=== PATIENT | male | born 1930 | race Caucasian/White ===

== ENCOUNTER → 2018-08-13 | Outpatient (CLI) | payer MEDICARE, BC | LOC: GMAE 11:08 | PROVIDERS: ATTEND Family Medicine | DX: E03.9 Hypothyroidism, unspecified (principal) ==

== ENCOUNTER → 2018-09-28 | Outpatient (CLI) | payer MEDICARE, BC | LOC: GMAE 17:42 | PROVIDERS: ATTEND Family Medicine | DX: J06.9 Acute upper respiratory infection, unspecified (principal) ==

== ENCOUNTER → 2018-09-29 | Outpatient (CLI) | payer MEDICARE, BC | LOC: GMAE 14:38 | PROVIDERS: ATTEND Family Medicine | DX: F03.90 Unspecified dementia, unspecified severity, without behavioral disturbance, psychotic disturbance, mood disturbance, and anxiety (principal) ==

== ENCOUNTER 2018-12-14 05:17 | Day surgery (SDC) | payer MEDICARE, BC ==
[2018-12-14] MEDS ORDERED: PROPARACAINE 0.5% OPHTH SOL 15 ML BTTL ONE (11:43)
[2018-12-14] MEDS ORDERED: TROP 1%/CYCLOPEN 1%/PHENYL 2% DROPS ONE (11:43)
[2018-12-14] MEDS ORDERED: MIDAZOLAM INJ 2 MG/2 ML VIAL ONE (13:17)
[2018-12-14] MEDS ORDERED: PROPARACAINE 0.5% OPHTH SOL 15 ML BTTL RIGHT_EYE ONE (13:21)
[2018-12-14] MEDS ORDERED: LIDOCAINE 1% 2 ML VIAL INJ ONE (13:31)
[2018-12-14] MEDS ORDERED: DEXAMETHASONE 0.1% OPHTH SOL 1 DROP RIGHT_EYE ONE ×2 (13:31→13:48)
[2018-12-14] MEDS ORDERED: BRIMONIDINE 0.2% OPHTH DROPS RIGHT_EYE ONE ×2 (13:32→13:48)
[2018-12-14] MEDS ORDERED: TOBRAMYCIN SULF 0.3 % OPHT SOL 1 DROP RIGHT_EYE ONE ×2 (13:32→13:48)
== END 2018-12-14 14:37 | disposition home or self-care (01) ==
LOC: AMB 05:17
PROVIDERS: ATTEND Ophthalmology
DX: H25.11 Age-related nuclear cataract, right eye (principal); K21.9 Gastro-esophageal reflux disease without esophagitis; Z88.0 Allergy status to penicillin; Z95.0 Presence of cardiac pacemaker; Z79.01 Long term (current) use of anticoagulants; Z79.1 Long term (current) use of non-steroidal anti-inflammatories (NSAID); Z79.899 Other long term (current) drug therapy
CPT/HCPCS: 00142; 66984; J2250

== ENCOUNTER 2018-12-28 05:36 | Day surgery (SDC) | payer MEDICARE, BC ==
[2018-12-28] MEDS ORDERED: MOXIFLOXACIN HCL (OPHTH) 1 DROP DROPS ONE (08:22)
[2018-12-28] MEDS ORDERED: PROPARACAINE 0.5% OPHTH SOL 15 ML BTTL ONE (08:23)
[2018-12-28] MEDS ORDERED: TROP 1%/CYCLOPEN 1%/PHENYL 2% DROPS ONE (08:23)
[2018-12-28] MEDS ORDERED: MIDAZOLAM INJ 2 MG/2 ML VIAL ONE (11:28)
[2018-12-28] MEDS ORDERED: PROPARACAINE 0.5% OPHTH SOL 15 ML BTTL LEFT_EYE ONE (11:31)
[2018-12-28] MEDS ORDERED: LIDOCAINE 1% 2 ML VIAL INJ ONE (11:42)
[2018-12-28] MEDS ORDERED: DEXAMETHASONE 0.1% OPHTH SOL 1 DROP LEFT_EYE ONE ×2 (11:42→12:08)
[2018-12-28] MEDS ORDERED: TOBRAMYCIN SULF 0.3 % OPHT SOL 1 DROP LEFT_EYE ONE ×2 (11:43→12:08)
[2018-12-28] MEDS ORDERED: BRIMONIDINE 0.2% OPHTH DROPS LEFT_EYE ONE ×2 (11:43→12:08)
[2018-12-28] MEDS ORDERED: MOXIFLOXACIN HCL (OPHTH) 1 DROP DROPS LEFT_EYE ONE ×2 (11:44→12:07)
== END 2018-12-28 12:39 | disposition home or self-care (01) ==
LOC: AMB 05:36
PROVIDERS: ATTEND Ophthalmology
DX: H25.12 Age-related nuclear cataract, left eye (principal); I48.91 Unspecified atrial fibrillation; F03.90 Unspecified dementia, unspecified severity, without behavioral disturbance, psychotic disturbance, mood disturbance, and anxiety; Z88.0 Allergy status to penicillin; Z85.79 Personal history of other malignant neoplasms of lymphoid, hematopoietic and related tissues; Z79.01 Long term (current) use of anticoagulants; Z79.899 Other long term (current) drug therapy
CPT/HCPCS: 00142; 66984; J2250

== ENCOUNTER → 2019-07-12 | Outpatient (CLI) | payer MEDICARE, BC | LOC: LAB.O 14:44 | PROVIDERS: ATTEND Internal Medicine Hematology | DX: C90.00 Multiple myeloma not having achieved remission (principal); D63.1 Anemia in chronic kidney disease; D80.1 Nonfamilial hypogammaglobulinemia; N18.3 Chronic kidney disease, stage 3 (moderate); I48.91 Unspecified atrial fibrillation; M46.00 Spinal enthesopathy, site unspecified; M89.8X9 Other specified disorders of bone, unspecified site; M19.90 Unspecified osteoarthritis, unspecified site ==

== ENCOUNTER → 2019-07-14 | Outpatient (CLI) | payer MEDICARE, BC ==
--- NOTE | 2019-07-14 16:33 | CT ---
EXAM DESCRIPTION: Head w/wo Contrast: Computed Tomography. CLINICAL HISTORY: PARKINSON'S DISEASE. Patient unable to have MRI scan due to pacemaker COMPARISON: None. TECHNIQUE: Spiral -axial scans through the head and brain at 2.5 x 20 mm intervals, without and with nonionic IV contrast. Coronal and sagittal 2.0 mm reconstructions, post-IV contrast. No adverse reactions. Total Exam DLP: 1719.94 mGy-cm. This exam was performed according to our departmental CT dose-optimization program which includes automated exposure control, adjustment of the mA and/or kV according to patient size and/or use of iterative reconstruction technique; to reduce radiation dose to as low as reasonably achievable (ALARA). FINDINGS: No hemorrhage. No mass-effect and no midline shift. Normal contrast enhancement. Bilaterally symmetric decreased periventricular density. No abnormal radiodense material in the brain parenchyma. Bilateral vascular calcifications.Vascular calcifications anterior and posterior; physiologic calcifications in the pineal gland and choroid plexus. No effacement or displacement of the ventricles, CSF spaces, or subdural spaces. Symmetric enlargement of the ventricular system. Cavum septum pellucid and. Normal contrast enhancement. No extra axial fluid collection or hemorrhage. No gross abnormalities of the bony calvarium. Decreased bone density. No unusual enhancement in the [place]. Deformity of the left maxillary antrum with wall thickening and opacification. Mucosal thickening in the anterior left ethmoid air cells. IMPRESSION: 1. No hemorrhage. No mass effect or midline shift.. Periventricular white matter density changes most likely related to cerebral microvascular disease/aging. Also cerebrovascular calcifications in the anterior and posterior circulations and in the basal ganglia. 2. CT scans are insensitive for detecting small CVA's in the first 24 hours after onset. Evaluation of the brain stem is also limited. If symptoms persist, consider MRI scan of the brain with diffusion imaging. 3. Deformity in the left maxillary antrum which is partially visualized. Visualized segment is completely opacified. Deformity could be due to prior trauma or inflammation. Chronic sinusitis in the anterior left ethmoid air cells. Electronically signed by: Kev Zaidi MD 07/14/2019 4:31 PM CDT
== END ==
LOC: MRI 14:00
PROVIDERS: ATTEND Psychiatry & Neurology Neurology
DX: G20 Parkinson's disease (principal); M51.06 Intervertebral disc disorders with myelopathy, lumbar region; M54.16 Radiculopathy, lumbar region; M54.12 Radiculopathy, cervical region; M95.8 Other specified acquired deformities of musculoskeletal system; J32.9 Chronic sinusitis, unspecified

== ENCOUNTER → 2019-07-19 | Outpatient (CLI) | payer MEDICARE, BC ==
--- NOTE | 2019-07-19 17:22 | CT ---
EXAM DESCRIPTION: Cervical Spine: Computed Tomography. CLINICAL HISTORY: 88 years Male RADICULOPATHY COMPARISON: None Available. TECHNIQUE: Spiral, axial 2.5 x 2.5 mm scans through the cervical spine without contrast. Coronal and sagittal 2.0 mm Reconstructions. Total Exam DLP: 370.49 mGy-cm. This exam was performed according to our departmental dose-optimization program which includes automated exposure control, adjustment of the mA and/or kV according to patient size and/or use of iterative reconstruction technique; to reduce radiation dose to as low as reasonably achievable (ALARA). FINDINGS: Advanced hypertrophic arthrosis atlantoaxial joint. No fracture. Small soft tissue calcifications between the anterior foramen magnum and the odontoid process. Anterior ligament posterior to the odontoid is almost abutting the cord. Mild arthrosis of the atlantooccipital joints with no displacement. Mild arthrosis in the bilateral C1-C2 facets more on the left. Overall bone density is decreased. C2-C3: Posterior disc space narrowed more than anterior space. Posterior disc bulge not abutting the cord. Left uncinate spur and moderate narrowing of the neural foramen. Bilateral facet hypertrophic arthrosis more on the left. C3-C4: Posterior disc space decreased more than anterior. Trace anterolisthesis. Posterior disc bulge with calcification and endplate spurs. Left uncinate spur. Bilateral hypertrophic facet arthrosis more on the left. Left neural foraminal stenosis. Mild to moderate narrowing of the right neural foramen. AP canal diameter 9.5 mm. C4-C5: Disc space loss and 2 mm anterolisthesis. Bilateral hypertrophic facet arthrosis, bilateral uncinate spurs larger on the right than the left. Bilateral neural foraminal stenosis. Posterior midline disc bulge with spurs. AP canal diameter 9.5 mm. C5-C6: Marked disc space loss mostly posterior. Posterior disc bulge with endplate spurs. Bilateral uncinate spurs. Moderate to severe right neural foraminal narrowing. Moderate left neural foraminal stenosis. Bilateral hypertrophic facet arthrosis. Mild canal narrowing. C6-C7: Moderate disc space loss. Posterior disc bulge and spurs encroaching on the canal more in the midline into the left of midline. Uncinate spur and endplate changes left lateral disc space. Bilateral facet arthrosis more left than right. Moderate to severe left neural foraminal narrowing and mild to moderate right neural foraminal narrowing. C7-T1: Trace anterolisthesis. Bilateral facet spurs and hypertrophy. Mild bilateral neural foraminal narrowing. Moderate disc space loss. Anterior bridging spurs. Mild canal narrowing. Mild dextroscoliosis. No compression type vertebral body fractures. Bilateral soft tissue calcifications at the C3-C4 level which may be related to common carotid bifurcations. Included apical lungs showing minimal is a density and pulmonary blebs. IMPRESSION: 1. Advanced osteoarthrosis atlantoaxial joint, atlantooccipital joints bilaterally, and the C1-C2 facets more on the left. Calcification between the odontoid process in the anterior foramen magnum. Thickening of the anterior ligament in the canal almost abutting the cord. 2. Left uncinate spur and moderate left neural foraminal narrowing C2-C3. 3. Left neural foraminal stenosis at C3-C4 and moderate narrowing of the right neural foramen. Moderate canal narrowing. 4. Multifactorial bilateral neural foraminal stenosis at C4-C5. Moderate canal narrowing. 5. Multifactorial moderate narrowing left neural foraminal stenosis at C5-C6. 6. Multifactorial moderate to severe left neural foraminal narrowing at C6-C7. Electronically signed by: Kev Zaidi MD 07/19/2019 5:20 PM CDT
== END ==
LOC: CT 13:25
PROVIDERS: ATTEND Psychiatry & Neurology Neurology
DX: G20 Parkinson's disease (principal); M47.22 Other spondylosis with radiculopathy, cervical region; M50.11 Cervical disc disorder with radiculopathy, high cervical region; M48.02 Spinal stenosis, cervical region

== ENCOUNTER → 2019-07-22 | Outpatient (CLI) | payer MEDICARE, BC ==
--- NOTE | 2019-07-23 09:07 | CT ---
EXAM DESCRIPTION: Lumbar Spine: Computed Tomography. CLINICAL HISTORY: 88 years Male RADICULOPATHY LUMBAR REGION COMPARISON: MRI scan cervical spine 07/19/2019. CT scan of the head with and without IV contrast 07/14/2019. TECHNIQUE: Spiral, axial 2.5 x 2.5 mm scans through the lumbarspine without contrast. Coronal and sagittal 2.0 mm Reconstructions. No adverse reactions. Total Exam DLP: 450.64 mGy-cm. This exam was performed according to our departmental dose-optimization program which includes automated exposure control, adjustment of the mA and/or kV according to patient size and/or use of iterative reconstruction technique; to reduce radiation dose to as low as reasonably achievable (ALARA). FINDINGS: L5-S1: Severe narrowing with endplate sclerosis and also calcification in the disc remnant. The posterior disc is not bulging into the canal. Bilateral hypertrophic facet arthrosis. Severe on the left with endplate spurs resulting in severe left foraminal stenosis. Moderate right foraminal narrowing. Mild canal narrowing. Bilateral L5 pars interarticularis sclerosis. Bilateral subarticular recess narrowing. L4-L5: Severe disc space loss with endplate erosions. Anterior endplate ridging. Small disc remnant. 8.5 mm grade 1 anterolisthesis. Hypertrophic facet arthrosis bilaterally. Moderate central canal stenosis. Bilateral foraminal stenosis. Bilateral subarticular recess stenosis. L3-L4: Minimal posterior disc space loss. Grade 1 anterolisthesis 2 mm. Advanced hypertrophic facet arthrosis bilaterally more right than left. Bilateral ligament thickening. AP canal diameter 9 mm. Mild right foraminal stenosis and moderate left foraminal narrowing. Narrowing right subarticular recess stenosis. L2-L3: Minimal posterior disc space loss. Trace retrolisthesis. No significant disc bulge. Bilateral advanced hypertrophic facet arthrosis and ligament thickening. AP canal diameter 8 mm. Mild right foraminal narrowing and mild left foraminal stenosis. L1-L2: Anterior endplate spurs and minimal bulging. Posterior disc space is narrowed. Trace retrolisthesis. Bilateral moderate hypertrophic facet arthrosis and thickening of the ligament. AP canal diameter 12 mm. Moderate to severe right foraminal narrowing moderate left foraminal narrowing. T12-L1: Minimal loss of the posterior disc space. No bulging. Bilateral moderate hypertrophic facet arthrosis and ligament thickening. Mild canal narrowing. No scoliosis. No compression type vertebral body fractures. No dominant paravertebral soft tissue mass. Atherosclerotic calcifications in the abdominal aorta and bilateral proximal common iliac arteries. IMPRESSION: 1. Multiple levels of endplate spondylosis, hypertrophic facet arthrosis and thickening of the flavum ligaments. 2. Advanced spondylosis and disc space loss with disc remnant at L5-S1. Severe left foraminal stenosis defect or no with moderate right foraminal narrowing. Correlate for left L5 radiculopathy. Bilateral L5 pars interarticularis spondylosis versus lysis. 3. Advanced spondylosis L4-5 with grade 1 anterolisthesis. Multifactorial mild central canal stenosis and bilateral foraminal stenosis. Correlate for bilateral L4 radiculopathy. Bilateral subarticular recess stenosis, could be compromising bilateral L5 nerves. 4. Grade 1 anterolisthesis at L3-4 with mild central canal stenosis. Mild right foraminal stenosis multifactorial. Correlate for right L3 radiculopathy. 5. Multifactorial moderate central canal stenosis at L2-L3 with mild left foraminal stenosis. Correlate for left L2 radiculopathy. 6. Trace retrolisthesis with moderate canal narrowing. Moderate to severe right foraminal narrowing. Correlate for right L1 radiculopathy. Electronically signed by: Kev Zaidi MD 07/23/2019 9:06 AM CDT
== END ==
LOC: CT 13:00
PROVIDERS: ATTEND Psychiatry & Neurology Neurology
DX: Z01.812 Encounter for preprocedural laboratory examination (principal); M47.27 Other spondylosis with radiculopathy, lumbosacral region; M47.26 Other spondylosis with radiculopathy, lumbar region; M43.16 Spondylolisthesis, lumbar region; M48.062 Spinal stenosis, lumbar region with neurogenic claudication; G20 Parkinson's disease

== ENCOUNTER → 2019-10-04 | Outpatient (CLI) | payer MEDICARE, BC | LOC: GMAE 17:41 | PROVIDERS: ATTEND Family Medicine | DX: C90.00 Multiple myeloma not having achieved remission (principal); N18.9 Chronic kidney disease, unspecified; D63.1 Anemia in chronic kidney disease; E53.8 Deficiency of other specified B group vitamins ==

== ENCOUNTER 2020-03-30 08:16 | Emergency (ER) | payer MEDICARE, BC ==
--- NOTE | 2020-03-30 08:55 | ED.PDOC ---
History of Present Illness - General Chief Complaint: Problem Stated Complaint: unable to urniate, diarrhea Time Seen by Provider: 03/30/20 08:51 Source: patient, RN notes reviewed, Vital Signs reviewed, family Exam Limitations: other - dementia Additional Information: 89yo M h/o multiple myeloma presents for difficulty urinating. History from family secondary to dementia. Reports small amounts of urine last night, no urine this morning with resulting suprapubic discomfort. Denies abdominal pain at other site, fever/chills, n/v, cough, SOB, chest pain. Reports some non- bloody diarrhea this morning as well. No other complaints at this time. - History of Present Illness Timing/Duration: yesterday Quality: moderate Onset Location: suprapubic Radiation: none Improving Factors: nothing Worsening Factors: nothing Associated Symptoms: abdominal pain, other - diarrhea Allergies/Adverse Reactions: Allergies Penicillins Allergy (Verified 03/30/20 08:42) Review of Systems - Review of Systems Constitutional: Denies: chills, fever EENTM: Denies: mouth swelling - reported h/o osteonecrosis Respiratory: States: no symptoms reported Cardiology: States: no symptoms reported Gastrointestinal/Abdominal: States: abdominal pain - suprapubic pain, diarrhea Genitourinary: States: pain. Denies: discharge, dysuria, frequency Musculoskeletal: States: no symptoms reported Skin: States: no symptoms reported Neurological: States: no symptoms reported Endocrine: States: no symptoms reported Past Medical History (General) - Patient Medical History Hx Cardiac Disorders: Yes - A-fib, pacemaker Hx Congestive Heart Failure: No Hx Diabetes: No Hx Cancer: Yes - multiple myeloma Surgical History: other - Vaccination History Hx Tetanus, Diphtheria Vaccination: No Hx Influenza Vaccination: Yes Hx Pneumococcal Vaccination: No - Social History Hx Tobacco Use: No Hx Alcohol Use: Yes - rare Hx Substance Use: No Hx Substance Use Treatment: No Hx Depression: No Family Medical History - Family History Mother Family History: Unknown Physical Exam - Physical Exam General Appearance: Alert, Comfortable, No apparent distress, Well Developed Eyes, Ears, Nose, Throat Exam: PERRL/EOMI Cardiovascular/Respiratory: regular rate, rhythm, no JVD, normal breath sounds, no respiratory distress Gastrointestinal/Abdominal: normal bowel sounds, soft, other - suprapubic pain with palpation Male Genital Exam: normal genitalia, other - no lesions, no testicular pain/erythema, no discharge or bleeding Back Exam: no CVA tenderness Extremity: normal range of motion, non-tender, no pedal edema Neurologic: load mixer II-XII nml as tested Skin Exam: normal color, warm/dry Progress - Progress Progress: 03/30/20 09:08 89yo M PMH multiple myeloma, on medications, with reported new difficulty urinating. 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 No reported history of BPH or prostate disease. Abdomen soft and otherwise non-tender, low suspicion for ischemia, bowel obstruction, aortic pathology, ACS, intraabdominal infection. Bedside sono with approximately 800cc urine in distended bladder, catheter placed with good output. Plan for labs, pain control PRN, reassess. 03/30/20 09:31 Patient reassessed. Suprapubic discomfort resolved, no pain with palpation, abdomen remained soft and non-tender, and patient reported relief of symptoms. Discussed results, ED course, and plan of care with patient and family. Time was given to address questions and concerns. They voiced understanding and ag bud with plan of care and early follow-up. ED warnings given. 03/30/20 09:[address] West, recommended flomax and early follow-up with his office. - Results/Orders Results/Orders: 03/30/20 08:51 Catheter:Zhang QSHIFT Intake/Output PRN URINALYSIS Stat Laboratory Results - last 24 hr 03/30/20 03/30/20 03/30/20 09:02 09:02 09:02 WBC 7.7 RBC 3.64 L Hgb 11.3 L Hct 33.6 L MCV 92.1 MCH 31.0 MCHC 33.7 RDW 20.7 H Plt Count 149 MPV 7.1 L Absolute Neuts (auto) 5.40 Absolute Lymphs (auto) 1.20 Absolute Monos (auto) 0.90 H Absolute Eos (auto) 0.10 Absolute Basos (auto) 0.10 Neutrophils % 69.8 Lymphocytes % 16.1 L Monocytes % 12.3 H Eosinophils % 1.1 Basophils % 0.7 Sodium 132 L Potassium 4.2 Chloride 98 L Carbon Dioxide 24 Anion Gap 14.2 BUN 19 H Creatinine 1.26 BUN/Creatinine Ratio 15.1 Random Glucose 147 H Serum Osmolality 269.5 L Calcium 11.8 H Total Bilirubin 1.7 H AST 35 ALT 18 Alkaline Phosphatase 73 Serum Total Protein 8.4 H Albumin 3.1 L Globulin 5.3 H Albumin/Globulin Ratio 0.6 L Lipase 34 Urine Color Urine Appearance Urine pH Ur Specific Sod Urine Protein Urine Glucose (UA) Urine Ketones Urine Blood Urine Nitrite Urine Bilirubin Urine Urobilinogen Ur Leukocyte Esterase Urine RBC Urine WBC Ur Epithelial Cells Amorphous Sediment Urine Bacteria 03/30/20 09:05 WBC RBC Hgb Hct MCV MCH MCHC RDW Plt Count MPV Absolute Neuts (auto) Absolute Lymphs (auto) Absolute Monos (auto) Absolute Eos (auto) Absolute Basos (auto) Neutrophils % Lymphocytes % Monocytes % Eosinophils % Basophils % Sodium Potassium Chloride Carbon Dioxide Anion Gap BUN Creatinine BUN/Creatinine Ratio Random Glucose Serum Osmolality Calcium Total Bilirubin AST ALT Alkaline Phosphatase Serum Total Protein Albumin Globulin Albumin/Globulin Ratio Lipase Urine Color Yellow Urine Appearance Clear Urine pH 7.0 Ur Specific Sod 1.025 Urine Protein Trace Urine Glucose (UA) Negative Urine Ketones Negative Urine Blood Negative Urine Nitrite Negative Urine Bilirubin Negative Urine Urobilinogen 1.0 Ur Leukocyte Esterase Negative Urine RBC 0-1 Urine WBC 0 Ur Epithelial Cells 0-1 Amorphous Sediment Trace Urine Bacteria 0 Departure - Departure Clinical Impression: Acute urinary retention Time of Disposition: 09:35 Disposition: Discharge to Home or Self Care Condition: Fair Departure Forms: ED Discharge - Pt. Copy, Patient Portal Self Enrollment Instructions: DI for Urinary Retention in Men Diet: regular diet Activity: increase activity as tolerated Referrals: IVVI WEST MD [Primary Care Provider] - 1-2 Weeks Additional Instructions: You were seen in the [facility] today. Please fill and take the medications as prescribed (if any) and if you were prescribed antibiotics, please complete the full course. You will need further evaluation on an out patient basis. You must follow up with the listed locations and within the time frames indicated in your discharge paperwork (including your PCP in 1-2 days). Failure to follow up with any studies or doctor visits within the timeframe mentioned could result in poor outcome. Your examination today in the ED did not reveal a new or old problem that required immediate surgery or admission to the hospital. However, you should return to the ED if you are not improving as instructed (especially within the first 6 to 24 hours). This may include things such as uncontrolled vomiting, s hortness of breath, fever, bleeding, or severe pain in a body part. You should return for any new or worsening emergency symptoms such as chest pain, severe headache, confusion, or severe abdominal pain. Finally, return to the emergency department if you have any concerns not mentioned above that are concerning to you or if you are unable to follow up as instructed above. If symptoms worsen, Contact your physician: 1. sudden weight gain 2. increased shortness of breath, especially when lying down 3. increased swelling in legs 4. cough that does not go away 5. tightness or pain in your chest 6. if you are having problems with your medications
[2020-03-30 10:17] VITALS: BP 165/83; TEMP 97.6; O2SAT 97
== END 2020-03-30 10:16 | disposition home or self-care (01) ==
LOC: ER 08:16
DX: R33.9 Retention of urine, unspecified (principal); C90.00 Multiple myeloma not having achieved remission; I48.91 Unspecified atrial fibrillation

== ENCOUNTER 2020-04-03 14:01 | Emergency (ER) | payer MEDICARE, BC ==
--- NOTE | 2020-04-03 14:40 | RAD ---
EXAM DESCRIPTION: Abdomen Series CLINICAL HISTORY: 89 years Male, bloody diarrhea COMPARISON: None. Findings: Four view(s)/radiograph(s) Left chest wall pacemaker. Cardiac silhouette and pulmonary vasculature are within normal limits. No pneumothorax. No pleural effusion. The lungs are clear. No free air beneath the diaphragm. Large stool volume. No suspicious calcification. Nonobstructive bowel gas pattern. No air-fluid level. No free air. Vascular calcifications. Osteopenia. No acute osseous abnormality. IMPRESSION: No acute radiographic abnormality. Electronically signed by: Maicol Montano MD 04/03/2020 2:38 PM CDT
[2020-04-03] MEDS ORDERED: SODIUM CHLORIDE 0.9% 1000ML 1,000 ML IVS ONE (15:07)
--- NOTE | 2020-04-03 15:49 | CT ---
EXAM DESCRIPTION: Abdomen/Pelvis w/Contrast CLINICAL HISTORY: 89 years Male, blood per rectum with diarrhea TECHNIQUE: This exam was performed according to our departmental dose-optimization program, which includes automated exposure control, adjustment of the mA and/or kV according to patient size and/or use of iterative reconstruction technique. COMPARISON: 09/13/2013 FINDINGS: Bibasilar volume loss. No focal consolidation or suspicious pulmonary nodule. Hepatic steatosis. No suspicious hepatic lesion. No biliary dilatation. Gallbladder is unremarkable. The portal vein is patent. Calcified granuloma in the spleen. The pancreas and adrenal glands are unremarkable. Right renal cyst. Symmetric renal parenchymal enhancement. No hydronephrosis. Left renal cyst. No urolithiasis. Bladder is decompressed with Zhang catheter. Prostatic calcifications. Circumferential thickening of the rectum with perirectal fat stranding. No evidence of bowel obstruction. No adenopathy. No focal fluid collection. No free air. Diffuse atherosclerotic disease. The infrarenal abdominal aorta measures 2.8 cm. Osteopenia. No acute or suspicious osseous abnormality. Scattered degenerative changes present. IMPRESSION: 1. Findings of acute proctitis. 2. 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 Recommend follow-up ultrasound or CT every 5 years. Electronically signed by: Maicol Montano MD 04/03/2020 3:48 PM CDT
[2020-04-03] MEDS ORDERED: metroNIDAZOLE 500 MG TAB PO ONE (15:55)
[2020-04-03] MEDS ORDERED: CIPROFLOXACIN 500 MG TAB PO ONE (15:55)
--- NOTE | 2020-04-03 16:21 | ED.PDOC ---
History of Present Illness - General Chief Complaint: GI Problem Stated Complaint: Blood in stool, fever, cough Time Seen by Provider: 04/03/20 14:06 Source: patient Exam Limitations: no limitations - History of Present Illness Initial Comments: The patient is a 89-year-old male presented emergency room secondary to intermittent diarrhea with some blood in it over the last couple of days. Additionally when he went to check yet at the primary care doctor's office, they recorded a temperature of 100.3. No chest pain or shortness of breath. No cough. No nausea or vomiting. He does have a Zhang catheter in place secondary to urinary retention. He normally has constipation issues. No syncope or near syncope. No evidence of sepsis. Temperature here is 99.7. Patient does have some dementia and his caregiver is very helpful. Timing/Duration: other - 3 to 5 days Severity: moderate Improving Factors: nothing Worsening Factors: nothing, other - He does have some pain with bowel movements Allergies/Adverse Reactions: Allergies Penicillins Allergy (Verified 04/03/20 14:22) Home Medications: Ambulatory Orders Tamsulosin [Flomax] 0.4 mg PO DAILY #7 cap 03/30/20 Review of Systems - Review of Systems Constitutional: States: no symptoms reported EENTM: States: no symptoms reported Respiratory: States: no symptoms reported Cardiology: States: no symptoms reported Gastrointestinal/Abdominal: States: constipation, diarrhea Genitourinary: States: no symptoms reported Musculoskeletal: States: no symptoms reported Skin: States: no symptoms reported Neurological: States: no symptoms reported - Chronic dementia Endocrine: States: no symptoms reported All other Systems: No Change from Baseline Past Medical History (General) - Patient Medical History Hx Cardiac Disorders: Yes - A-fib, pacemaker Hx Congestive Heart Failure: No Hx Diabetes: No Hx Cancer: Yes - multiple myeloma - Vaccination History Hx Tetanus, Diphtheria Vaccination: No Hx Influenza Vaccination: Yes Hx Pneumococcal Vaccination: No - Social History Hx Tobacco Use: No Hx Alcohol Use: Yes - rare Hx Substance Use: No Hx Substance Use Treatment: No Hx Depression: No - Activities of Daily Living Hospice Agency (if applicable):: None - Female History Patient is a Female of Child Bearing Age (10 -59 yrs old): No - Triage Comment ED Triage Comment: pt daughter voices fever, cough, and blood in stool that started last night. she voices that he was seen in ER friday night. Family Medical History - Family History Mother Family History: Unknown Physical Exam - Physical Exam General Appearance: Alert, Comfortable, No apparent distress Eye Exam: bilateral normal Ears, Nose, Throat: hearing grossly normal, normal pharynx Neck: full range of motion, supple Respiratory: lungs clear, normal breath sounds, no respiratory distress, no accessory muscle use Cardiovascular/Chest: normal peripheral pulses, regular rate, rhythm, no edema Peripheral Pulses: radial,right: 2+, radial,left: 2+ Gastrointestinal/Abdominal: non tender, soft Rectal Exam: other - External exam shows no significant hemorrhoids. 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 The patient appears to have acute proctitis. I am going to place the patient empirically on ciprofloxacin and metronidazole. I am also going to write him for Anusol and Proctofoam to be used intrarectally. He will also be written for a gallon of GoLYTELY to be taken over the next 24 hours to help relieve constipation which will hopefully help also relieve the proctitis. No evidence of sepsis. White blood cell count is reassuring. He does need to follow back up with his primary care doctor before the end of the week. This is for reevaluation also for evaluation for removal of the Zhang catheter. They do need to be doing bladder training at home between now and then. He was unable to provide a stool sample today. ER warnings are given for any worsening. trell leach [id number] - Results/Orders Results/Orders: Acute abdominal series shows moderate constipation. CT scan of the abdomen pelvis with IV contrast shows a fatty liver and acute proctitis. see report for details. Laboratory Tests 04/03/20 04/03/20 04/03/20 14:24 14:24 14:24 WBC 5.6 RBC 3.49 L Hgb 10.8 L Hct 32.1 L MCV 92.0 MCH 31.0 MCHC 33.7 RDW 20.1 H Plt Count 165 MPV 7.2 L Absolute Neuts (auto) 2.60 Absolute Lymphs (auto) 2.00 Absolute Monos (auto) 0.80 Absolute Eos (auto) 0.20 Absolute Basos (auto) 0.00 Neutrophils % 46.8 Lymphocytes % 35.0 Monocytes % 13.8 H Eosinophils % 3.6 Basophils % 0.8 PT 11.3 H INR 1.14 PTT (SP) 28.2 Sodium 135 Potassium 3.9 Chloride 100 L Carbon Dioxide 26 Anion Gap 12.9 BUN 16 Creatinine 1.15 BUN/Creatinine Ratio 13.9 Random Glucose 111 H Serum Osmolality 272.0 L Lactic Acid Calcium 10.7 H Magnesium 1.6 L Total Bilirubin 1.1 H AST 40 ALT 28 Alkaline Phosphatase 66 Creatine Kinase 22 L CK-MB (CK-2) 0.6 CK-MB (CK-2) % Not Reportable Troponin I 0.02 B-Natriuretic Peptide 398.0 H* Serum Total Protein 8.5 H Albumin 3.0 L Globulin 5.5 H Albumin/Globulin Ratio 0.5 L Amylase 40 Lipase 44 D Total PSA 04/03/20 04/03/20 14:24 14:24 WBC RBC Hgb Hct MCV MCH MCHC RDW Plt Count MPV Absolute Neuts (auto) Absolute Lymphs (auto) Absolute Monos (auto) Absolute Eos (auto) Absolute Basos (auto) Neutrophils % Lymphocytes % Monocytes % Eosinophils % Basophils % PT INR PTT (SP) Sodium Potassium Chloride Carbon Dioxide Anion Gap BUN Creatinine BUN/Creatinine Ratio Random Glucose Serum Osmolality Lactic Acid 1.1 Calcium Magnesium Total Bilirubin AST ALT Alkaline Phosphatase Creatine Kinase CK-MB (CK-2) CK-MB (CK-2) % Troponin I B-Natriuretic Peptide Serum Total Protein Albumin Globulin Albumin/Globulin Ratio Amylase Lipase Total PSA 2.43 Departure - Departure Clinical Impression: Proctitis Disposition: Discharge to Home or Self Care Departure Forms: ED Discharge - Pt. Copy, Patient Portal Self Enrollment Instructions: Proctitis Diet: regular diet Activity: increase activity as tolerated Referrals: VIVI CALDERON MD [Primary Care Provider] - 1-5 Days Home Medications: Ambulatory Orders Tamsulosin [Flomax] 0.4 mg PO DAILY #7 cap 03/30/20 Additional Instructions: The patient is a 89-year-old male presented emergency room secondary to diarrhea with blood in it as well as a low-grade fever today. The patient appears to have acute proctitis. I am going to place the patient empirically on ciprofloxacin and metronidazole. I am also going to write him for Anusol and Proctofoam to be used intrarectally. He will also be written for a gallon of GoLYTELY to be taken over the next 24 hours to help relieve constipation which will hopefully help also relieve the proctitis. No evidence of sepsis. White blood cell count is reassuring. He does need to follow back up with his primary care doctor before the end of the week. This is for reevaluation also for evaluation for removal of the Zhang catheter. They do need to be doing bladder training at home between now and then. He was unable to provide a stool sample today. ER warnings are given for any worsening.
[2020-04-03 17:11] VITALS: O2SAT 98
[2020-04-03 17:12] VITALS: BP 102/55; TEMP 98.9
== END 2020-04-03 17:05 | disposition home or self-care (01) ==
LOC: ER 14:01
DX: K62.89 Other specified diseases of anus and rectum (principal); K59.00 Constipation, unspecified; I48.91 Unspecified atrial fibrillation; Z95.0 Presence of cardiac pacemaker; R33.9 Retention of urine, unspecified
CPT/HCPCS: 36415; 74019; 74177; 80053; 81001; 82150; 82550; 82553; 83605; 83690; 83735; 83880; 84484; 85025; 85610; 85730; 87040; G0103; J7030

== ENCOUNTER → 2020-05-03 | Outpatient (CLI) | payer MEDICARE, BC | LOC: LAB.O 15:41 | PROVIDERS: ATTEND Internal Medicine Hematology & Oncology | DX: C90.00 Multiple myeloma not having achieved remission (principal); D50.9 Iron deficiency anemia, unspecified; D63.1 Anemia in chronic kidney disease; D80.1 Nonfamilial hypogammaglobulinemia; N18.3 Chronic kidney disease, stage 3 (moderate); I48.91 Unspecified atrial fibrillation; M48.00 Spinal stenosis, site unspecified; M89.8X9 Other specified disorders of bone, unspecified site; M19.90 Unspecified osteoarthritis, unspecified site ==

== ENCOUNTER 2020-08-28 10:10 | Inpatient (IN) | payer MEDICARE, BC ==
--- NOTE | 2020-08-28 11:44 | ED.PDOC ---
History of Present Illness - General Chief Complaint: Lower Extremity Injury Stated Complaint: left hip pain post fall yesterday Time Seen by Provider: 08/28/20 10:52 Source: patient, RN notes reviewed, Vital Signs reviewed, family - daughter Exam Limitations: other - Dementia - History of Present Illness Initial Comments: Patient is an 89-year-old white male with significant dementia who presents with complaints of left hip pain status post fall yesterday. After the fall, patient was unable to get up off the floor without help and has been unable to walk since that time. History of present illness and review of systems is limited secondary to his dementia. Pain is moderate in intensity, no radiation. He is unable to characterize the quality of the pain. Occurred: yesterday Severity: moderate Pain Location: lower extremity - Left hip Method of Injury: fall Improving Factors: rest Worsening Factors: movement Loss of Consciousness: no loss of consciousness Associated Symptoms (Fall): denies symptoms Allergies/Adverse Reactions: Allergies Penicillins Allergy (Verified 08/28/20 10:29) Home Medications: Ambulatory Orders Tamsulosin [Flomax] 0.4 mg PO DAILY #7 cap 03/30/20 Review of Systems - Review of Systems Constitutional: States: no symptoms reported, see HPI EENTM: States: no symptoms reported. Denies: eye pain, blurred vision, double vision Respiratory: States: no symptoms reported. Denies: cough, short of breath, stridor Cardiology: States: no symptoms reported. Denies: chest pain, palpitations, syncope Gastrointestinal/Abdominal: States: no symptoms reported. Denies: abdominal pain, diarrhea, nausea, vomiting Genitourinary: States: no symptoms reported Musculoskeletal: States: joint pain - left hip. Denies: back pain Skin: States: no symptoms reported. Denies: change in color, rash Neurological: States: see HPI, weakness. Denies: tingling, tremors Endocrine: States: no symptoms reported. Denies: increased hunger, increased thirst, increased urine Hematologic/Lymphatic: States: easy bleeding - due to blood thinners. Denies: blood clots Unable to Obtain Due To: dementia All other Systems: No Change from Baseline Past Medical History (General) - Patient Medical History Hx Cardiac Disorders: Yes - A-fib, pacemaker Hx Congestive Heart Failure: No Hx Diabetes: No Hx Cancer: Yes - multiple myeloma Surgical History: pacemaker - Vaccination History Hx Tetanus, Diphtheria Vaccination: No Hx Influenza Vaccination: Yes Hx Pneumococcal Vaccination: Yes - Social History Hx Tobacco Use: No Hx Alcohol Use: Yes - rare Hx Substance Use: No Hx Substance Use Treatment: No Hx Depression: No Family Medical History - Family History Mother Family History: Unknown Physical Exam - Physical Exam General Appearance: Alert, Comfortable, Well Developed, Well Groomed, Well Hyd rated, Well Nourished Head Injury: no evidence of injury Eye Exam: bilateral normal ENT Exam: hearing grossly normal, no dental injury Neck Exam: non-tender, full range of motion, normal alignment, normal inspection Cardiovascular/Respiratory: regular rate, rhythm, no M/R/G, normal peripheral pulses, no JVD, normal breath sounds, no respiratory distress Gastrointestinal/Abdominal: normal bowel sounds, non tender, soft, no organomegaly Back Exam: normal inspection, no CVA tenderness, no vertebral tenderness Extremity Exam: pelvis stable, bony-point tenderness - left hip 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 08/28/20 14:45 Patient with a cortical fracture necessitating a gamma nail per orthopedics, Dr. de la rosa. Plan on admission to [facility]. I have spoken with [facility] and he is excepted the patient for admission. I discussed this plan of care with the patient and his and they voiced understanding and agreement. Curt Elias M.D. #[id number] - Results/Orders Results/Orders: EXAM DESCRIPTION: CT head without contrast CLINICAL HISTORY: fall with confusion. On Xarelto COMPARISON: Previous study July 14, 2019 TECHNIQUE: Noncontrast head CT was performed with routine protocol. FINDINGS: Normal colvin-white matter differentiation. Ventricles and sulci are normal for age. No high density hemorrhage, focal edema or shift of the midline. No sulcal effacement. Normal orbital contents. Basilar cisterns appear clear. 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 Extensive calcification of the intracranial internal carotid arteries. Normal aeration of tympanic cavities and mastoid air cells. Mucosal thickening in the left maxillary sinus with marked thickening of the bone consistent with chronic sinusitis. Deformity of the nasal skeleton most consistent with old trauma. Skull base appears intact. Symmetrical internal auditory canals. IMPRESSION: No acute intracranial pathologic process. Chronic left maxillary sinusitis This exam was performed according to our departmental dose-optimization program, which includes automated exposure control, adjustment of the mA and/or kV according to patient size and/or use of iterative reconstruction technique. Total DLP equals 859.97 mGycm. Electronically signed by: Jericho Arreola MD 08/28/2020 11:42 EXAM DESCRIPTION: Cervical Spine CLINICAL HISTORY: fall with confusion. On Xarelto COMPARISON: Previous CT of the cervical spine July 19, 2020 TECHNIQUE: Cervical CT is performed with thin-section axial imaging. MPRs are created and reviewed as well. FINDINGS: Axial bone window images reveal intact ring of C1. No abnormal widening of the atlantodens interval. No fracture of the vertebral bodies or transverse processes or posterior elements. Lung apices appear clear. No cervical mass or adenopathy. Sagittal reformatted images show normal alignment of vertebral bodies and facets. No jumped facet or facet fracture. Normal craniocervical alignment. No prevertebral soft tissue swelling. No a avulsion of the spinous processes. Spondylosis: Sagittal images show severe degenerative narrowing of the atlantodens interval with superior spurring. Advanced disc degeneration with loss of disc height at C5-6 more than C6-7. Prominent anterior and posterior spurring is seen without high-grade spinal stenosis. Multilevel facet hypertrophic spurring bilaterally. Coronal reformatted images show normal atlantooccipital and atlantoaxial alignment. The base of the dens is intact as is the body of C2. Intact lateral masses. IMPRESSION: Negative for fracture or traumatic subluxation. Degenerative changes as described. This exam was performed according to our departmental dose-optimization program, which includes automated exposure control, adjustment of the mA and/or kV according to patient size and/or use of iterative reconstruction technique. Total DLP equals 370.49 mGycm. Electronically signed by: Jericho Arreola MD 08/28/2020 11:47 EXAM DESCRIPTION: Pelvis (accession [id number]), Hip,Left 2 Views (accession [id number]) CLINICAL HISTORY: 89 years, Male, fall with left hip pain COMPARISON: None TECHNIQUE: AP and frog leg lateral x-ray views of the left hip two views AP x-ray view of the pelvis one view FINDINGS: Pelvis Degenerative narrowing of the hip joints, pubic symphysis and SI joints with advanced degenerative changes of the lower lumbar spine. The sacrum appears intact. Vascular calcifications in the pelvis. Old avulsion injury of the left i lium with ossified appearance. Compared to a previous CT of the pelvis march, findings are predictably similar. No new fracture is identified. No new lytic lesion has developed. Left hip 2 x-ray views of the left hip reveal degenerative narrowing of the left hip joint. Degenerative changes at the pubic symphysis. No underlying lytic bone lesion. On the AP view, slight irregularity at the superolateral left femoral head neck junction could be subtle evidence of a fracture or may represent spurring. Comparing to the contour in this area on the previous CT, no evidence of fracture or significant spurring was seen on the previous study. One might consider further evaluation with CT or MRI of the pelvis and left hip. Questionable appearance of the left superior pubic ramus on one view. IMPRESSION: Subtle cortical fracture versus spurring at the superolateral left femoral head neck junction. See above. Electronically signed by: Jericho Arreola MD 08/28/2020 12:12 EXAM DESCRIPTION: Pelvis: Computed Tomography. CLINICAL HISTORY: left hip pain. Questionable fracture on xray. Pain increasing since fall. COMPARISON: CT scan abdomen and pelvis April 03. TECHNIQUE: Spiral-axial scans 2.5 x 2.5 mm intervals through the pelvis: Without water soluble barium contrast; no IV contrast. Coronal and sagittal 2.0 mm reconstructions. Total Exam DLP: 625.2 mGy-cm. This exam was performed according to our departmental CT dose-optimization program which includes automated exposure control, adjustment of the mA and/or kV according to patient size and/or use of iterative reconstruction technique; to reduce radiation dose to as low as reasonably achievable (ALARA). FINDINGS: Spine and Bony Pelvis: Overall bone density is decreased which decreases the sensitivity of the study. Interruption of the subcapital lateral left femoral neck cortex with underlying subcortical cyst. No fracture line extension to the medial subcapital neck cortex. Minimal adjacent soft tissue swelling. Small displaced bony fragment. The cyst was present on the prior CT scan of the cortical changes were not. Decreased right hip joint space with subchondral cysts in the right acetabulum. Hypertrophic lateral superior acetabulum, narrowing of the underlying joint space, and subchondral sclerosis in the acetabulum. Similar process on the right with more hypertrophy of the acetabulum and posterior femoral head over coverage. Subcortical cyst also noted in the subcapital lateral right femoral neck. Smooth appearance of the cortex however. Arthrosis of the pubic symphysis. Bilateral arthrosis SI joints. Advanced spondylosis and significant disc space narrowing at L5-S1 with left foraminal stenosis. Spondylosis and spondylolisthesis anteriorly at L4-L5 with bilateral foraminal stenosis and mild canal stenosis.. Pelvic Organs: Enlarged prostate gland impressing on the base of the urinary bladder. No radiodense stones in the bladder. Distal ureters negative. No free fluid in the pelvis. Mesentery: No fatty stranding or fascial thickening. Small Bowel: Normal caliber of the included segments. Terminal Ileum: Negative. Cecum: Moderate distention by fecal matter. No air-fluid level. Appendix not seen.. Colon: Included distal segment containing fecal matter with moderate redundancy but no complications. Inguinal Canals: Stable fatty right inguinal hernia not containing bowel. Pelvic Wall/Back Soft Tissues: Small umbilical hernia stable with no incarcerated bowel, fat only. IMPRESSION: Incomplete cortical fracture of the subcapital lateral left femoral neck at the site of underlying subcortical cyst. Fracture not present on the prior pelvic CT scan. No angulation or displacement. Small cortical bone density displaced at the fracture site. Minimal soft tissue swelling. Bilateral hip joint arthrosis more on the left. Right acetabular over coverage of the right femoral head which can be associated with femoral acetabular impingement. No free fluid in the pelvis. Bladder is i ntact. CRITICAL COMMUNICATION: The critical value was communicated directly by Dr. Zaidi via phone call, with Dr. Elias, at approximately 1415 hours, on August 28, 2020. Electronically signed by: Kev Zaidi MD 08/28/2020 2:20 PM CDT Departure - Departure Clinical Impression: Hip fracture Qualifiers: Encounter type: initial encounter Fracture type: closed Laterality: left Qualified Code(s): S72.002A - Fracture of unspecified part of neck of left femur, initial encounter for closed fracture Time of Disposition: 14:47 Disposition: Admit Patient Condition: Good Departure Forms: ED Discharge - Pt. Copy, Patient Portal Self Enrollment Instructions: DI for Leg Pain Diet: resume usual diet Activity: as per physical therapy Referrals: VIVI CALDERON MD [Primary Care Provider] - 1-2 Weeks Home Medications: Ambulatory Orders Tamsulosin [Flomax] 0.4 mg PO DAILY #7 cap 03/30/20 Decision To Admit - Decistion To Admit Decision to Admit Date: 08/28/20 Decision to Admit Time: 14:15
--- NOTE | 2020-08-28 11:48 | CT ---
EXAM DESCRIPTION: Cervical Spine CLINICAL HISTORY: fall with confusion. On Xarelto COMPARISON: Previous CT of the cervical spine July 19, 2020 TECHNIQUE: Cervical CT is performed with thin-section axial imaging. MPRs are created and reviewed as well. FINDINGS: Axial bone window images reveal intact ring of C1. No abnormal widening of the atlantodens interval. No fracture of the vertebral bodies or transverse processes or posterior elements. Lung apices appear clear. No cervical mass or adenopathy. Sagittal reformatted images show normal alignment of vertebral bodies and facets. No jumped facet or facet fracture. Normal craniocervical alignment. No prevertebral soft tissue swelling. No a avulsion of the spinous processes. Spondylosis: Sagittal images show severe degenerative narrowing of the atlantodens interval with superior spurring. Advanced disc degeneration with loss of disc height at C5-6 more than C6-7. Prominent anterior and posterior spurring is seen without high-grade spinal stenosis. Multilevel facet hypertrophic spurring bilaterally. Coronal reformatted images show normal atlantooccipital and atlantoaxial alignment. The base of the dens is intact as is the body of C2. Intact lateral masses. IMPRESSION: Negative for fracture or traumatic subluxation. Degenerative changes as described. This exam was performed according to our departmental dose-optimization program, which includes automated exposure control, adjustment of the mA and/or kV according to patient size and/or use of iterative reconstruction technique. Total DLP equals 370.49 mGycm. Electronically signed by: Jericho Arreola MD 08/28/2020 11:47 AM CDT
--- NOTE | 2020-08-28 12:14 | RAD ---
EXAM DESCRIPTION: Pelvis (accession [id number]), Hip,Left 2 Views (accession [id number]) CLINICAL HISTORY: 89 years, Male, fall with left hip pain COMPARISON: None TECHNIQUE: AP and frog leg lateral x-ray views of the left hip two views AP x-ray view of the pelvis one view FINDINGS: Pelvis Degenerative narrowing of the hip joints, pubic symphysis and SI joints with advanced degenerative changes of the lower lumbar spine. The sacrum appears intact. Vascular calcifications in the pelvis. Old avulsion injury of the left ilium with ossified appearance. Compared to a previous CT of the pelvis march, findings are predictably similar. No new fracture is identified. No new lytic lesion has developed. Left hip 2 x-ray views of the left hip reveal degenerative narrowing of the left hip joint. Degenerative changes at the pubic symphysis. No underlying lytic bone lesion. On the AP view, slight irregularity at the superolateral left femoral head neck junction could be subtle evidence of a fracture or may represent spurring. Comparing to the contour in this area on the previous CT, no evidence of fracture or significant spurring was seen on the previous study. One might consider further evaluation with CT or MRI of the pelvis and left hip. Questionable appearance of the left superior pubic ramus on one view. IMPRESSION: Subtle cortical fracture versus spurring at the superolateral left femoral head neck junction. See above. Electronically signed by: Jericho Arreola MD 08/28/2020 12:12 PM CDT
--- NOTE | 2020-08-28 14:22 | CT ---
EXAM DESCRIPTION: Pelvis: Computed Tomography. CLINICAL HISTORY: left hip pain. Questionable fracture on xray. Pain increasing since fall. COMPARISON: CT scan abdomen and pelvis April 03. TECHNIQUE: Spiral-axial scans 2.5 x 2.5 mm intervals through the pelvis: Without water soluble barium contrast; no IV contrast. Coronal and sagittal 2.0 mm reconstructions. Total Exam DLP: 625.2 mGy-cm. This exam was performed according to our departmental CT dose-optimization program which includes automated exposure control, adjustment of the mA and/or kV according to patient size and/or use of iterative reconstruction technique; to reduce radiation dose to as low as reasonably achievable (ALARA). FINDINGS: Spine and Bony Pelvis: Overall bone density is decreased which decreases the sensitivity of the study. Interruption of the subcapital lateral left femoral neck cortex with underlying subcortical cyst. No fracture line extension to the medial subcapital neck cortex. Minimal adjacent soft tissue swelling. Small displaced bony fragment. The cyst was present on the prior CT scan of the cortical changes were not. Decreased right hip joint space with subchondral cysts in the right acetabulum. Hypertrophic lateral superior acetabulum, narrowing of the underlying joint space, and subchondral sclerosis in the acetabulum. Similar process on the right with more hypertrophy of the acetabulum and posterior femoral head over coverage. Subcortical cyst also noted in the subcapital lateral right femoral neck. Smooth appearance of the cortex however. Arthrosis of the pubic symphysis. Bilateral arthrosis SI joints. Advanced spondylosis and significant disc space narrowing at L5-S1 with left foraminal stenosis. Spondylosis and spondylolisthesis anteriorly at L4-L5 with bilateral foraminal stenosis and mild canal stenosis.. Pelvic Organs: Enlarged prostate gland impressing on the base of the urinary bladder. No radiodense stones in the bladder. Distal ureters negative. No free fluid in the pelvis. Mesentery: No fatty stranding or fascial thickening. Small Bowel: Normal caliber of the included segments. Terminal Ileum: Negative. Cecum: Moderate distention by fecal matter. No air-fluid level. Appendix not seen.. Colon: Included distal segment containing fecal matter with moderate redundancy but no complications. Inguinal Canals: Stable fatty right inguinal hernia not containing bowel. Pelvic Wall/Back Soft Tissues: Small umbilical hernia stable with no incarcerated bowel, fat only. IMPRESSION: Incomplete cortical fracture of the subcapital lateral left femoral neck at the site of underlying subcortical cyst. Fracture not present on the prior pelvic CT scan. No angulation or displacement. Small cortical bone density displaced at the fracture site. Minimal soft tissue swelling. Bilateral hip joint arthrosis more on the left. Right acetabular over coverage of the right femoral head which can be associated with femoral acetabular impingement. No free fluid in the pelvis. Bladder is intact. CRITICAL COMMUNICATION: The critical value was communicated directly by Dr. Zaidi via phone call, with Dr. Elias, at approximately 1415 hours, on August 28, 2020. Electronically signed by: Kev Zaidi MD 08/28/2020 2:20 PM CDT
[2020-08-28] MEDS ORDERED: ONDANSETRON INJ 4 MG/2 ML VIAL IV ONE (14:42)
[2020-08-28] MEDS ORDERED: fentaNYL CITRATE INJ 50 MCG/ML 2 ML AMP IV ONE (14:42)
--- NOTE | 2020-08-28 15:07 | HP ---
SUPERVISING PHYSICIAN: Des West M.D. CHIEF COMPLAINT: Pain in left hip secondary to fracture. HISTORY OF PRESENT ILLNESS: Mr. Ospina is an 89 year-old male patient with a past medical history of multiple myeloma, chronic atrial fibrillation on Xarelto with a pacemaker, who presents to the Emergency Room today for evaluation of left hip pain. The patient has a significant amount of dementia and most of the history if obtained from his who is present as well as a review of past medical records. His endorses that he fell yesterday at home tripping over his reclining chair after which he apparently was having some pain in his left hip significant enough that he was unable to actually stand or walk. Today in the Emergency Room, radiology studies of the left hip revealed an incomplete cortical fracture of the subcapital lateral left femoral neck. Dr. Whitman was consulted based off the x-ray findings. Dr. Whitman has requested the patient be admitted for further evaluation, workup and in anticipation of a gamma nail repair of the left hip in the morning. The patient was admitted in stable condition. PAST MEDICAL HISTORY: 1. IGG lambda multiple myeloma. 2. Iron-deficiency anemia. 3. Chronic deconditioning. 4. Osteonecrosis. 5. Chronic atrial fibrillation on Xarelto with a pacemaker. PAST SURGICAL HISTORY: 1. Left inguinal hernia repair. 2. Pacemaker implantation in 2018. 3. Heel spur removed. HOME MEDICATIONS: 1. Xarelto 2.5 mg b.i.d. Awaiting further list for further clarification and updated list of home medication in the electronic mechanical records. ALLERGIES: PENICILLIN. FAMILY HISTORY: Noncontributory. 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 He is . He lives in [place], [place]. He has one son. He has no history of tobacco usage and drinks on rare occasions. He does not use any illicit drugs. REVIEW OF SYSTEMS: Difficult to fully obtain due to the patient's dementia. CONSTITUTIONAL: Denied any fevers, chills, general malaise or unintentional weight loss. HEENT: Denied any ear aches, sore throat, nasal congestion, headaches. RESPIRATORY: Denies any coughing, wheezing or shortness of breath. CARDIOVASCULAR: Denies any chest pains, palpitations or syncopal episodes. GASTROINTESTINAL: Denies any nausea, vomiting, diarrhea, constipation or abdominal pain. GENITOURINARY: Denies any dysuria, hematuria, polyuria. MUSCULOSKELETAL: As noted in History of Present Illness. NEUROLOGIC: Denies any ataxia or seizures. Does have a significant amount of deconditioning but no focal motor deficits and ongoing dementias. SKIN: Denies any unexplained bleeding, bruising other than those related to Xarelto. No transfusion reactions. PHYSICAL EXAMINATION: VITAL SIGNS: Temperature 98.1, pulse 64, blood pressure 154/82, respirations 18, satting 97% on room air. Admission weight 76.0 kg. GENERAL: The patient looks to be resting comfortably in no acute distress. He is visiting with his , very pleasant. He is alert. HEENT: Tympanic membranes clear bilaterally. Oropharynx is pink, moist without any lesions. NECK: Supple, nontender with full range of motion. No jugular venous distention noted. CHEST: Lung sounds are clear to auscultation bilaterally without any rhonchi, wheezes or rales. On the chest wall is noted a pacemaker palpated. HEART: Regular rate and rhythm without any appreciable murmurs, gallops, or rubs. ABDOMEN: Soft, nontender. Positive bowel sounds. BACK: No CVA tenderness. No vertebral tenderness. PELVIC: Pelvis was stable on exam. Some bony tenderness noted on palpation of the left hip. No obvious rotation or shortening. NEUROLOGIC: Cranial nerves II-XII are grossly intact. There is no obvious motor or sensory deficits. He is alert and oriented times three. SKIN: Warm, pink and dry. LABORATORY: White count 5,700, hemoglobin 11.3, hematocrit 33.7. RBC indices indicate a normocytic anemia, platelet count 98,000. Differential shows to be without a left shift. Chemistries show normal electrolytes, BUN 21, creatinine 1.0, glucose 92, calcium 1.3 which approximately is close to his baseline levels according to his family. Total bilirubin is a little elevated at 1.8. AST and ALT were normal. Globulin level was high at 4.5. Urinalysis just showed trace intact blood, 2.0 urobilinogen, otherwise within normal limits. RADIOLOGY: Multiple radiology imaging studies were done, including head CT, cervical spine as well as pelvis CT. The only acute finding was the incomplete cortical fracture of the subcapital lateral left femoral neck. CT of the spine and head were without any acute findings. Chest x-ray shows enlargement of the cardiac silhouette without any pulmonary vascular congestion. Lungs were normally aerated without acute infiltrate or consolidation. No pleural effusions. EKG showed a ventricular paced rhythm 100%. ASSESSMENT: 1. Acute left hip fracture secondary to ground level fall. 2. Chronic atrial fibrillation with a pacemaker on chronic anticoagulation with Xarelto. 3. IGG lambda multiple myeloma with no history of remission with labs looking to be at baseline levels, including calcium level and creatinine. 4. Iron-deficiency anemia showing to be fairly stable. 5. Lumbar disc disease. PLAN: Mr. Ospina is going to be admitted in anticipation of a gamma nailing to repair the left hip fracture in the morning. I have notified Anesthesia and Jaden is aware of the patient's diagnosis and currently on Xarelto. Will hold his medications, including Xarelto and put him on a PPI in the form of Protonix. Will defer orthopedic management to Dr. Whitman and Physical Therapy. Will continue to follow the patient medically as needed until he can transition to outpatient management. Until then will continue to monitor and treat as needed. #[id number] [facility]
--- NOTE | 2020-08-28 15:27 | RAD ---
EXAM DESCRIPTION: Chest,1 View CLINICAL HISTORY: left hip frx COMPARISON: None. IMPRESSION: Single AP portable upright view of the chest shows enlargement of the cardiac silhouette without pulmonary vascular congestion. Left subclavian single lead transvenous cardiac pacemaker seen in place. Lungs are normally aerated without acute infiltrate or consolidation. No pleural effusion or pneumothorax. Moderate osteoarthritic changes of the right shoulder are seen. Electronically signed by: Isaac Grande MD 08/28/2020 3:25 PM CDT
[2020-08-28] MEDS ORDERED: ACETAMINOPHEN 325 MG TAB PO PRN (18:48)
[2020-08-28] MEDS ORDERED: SODIUM CHLORIDE 0.9% (FLUSH) 10 ML SYG IV PRN (18:48)
[2020-08-28] MEDS ORDERED: MORPHINE SULFATE INJ 10 MG/ML VIAL IV PRN (18:53)
[2020-08-28] MEDS: IV SET AND CAP CHANGE INJ INJ SCH (19:04)
[2020-08-29] MEDS ORDERED: PANTOPRAZOLE SODIUM IV 40 MG VIAL IV SCH (05:00)
[2020-08-29] MEDS ORDERED: PROPOFOL 200 MG/20 ML VIAL IV ONE (07:00)
[2020-08-29] MEDS ORDERED: LIDOCAINE 1% 10 ML VIAL INJ ONE (07:00)
[2020-08-29] MEDS ORDERED: MAGNESIUM SULFATE INJ 1 GM/2 ML VIAL ONE (07:00)
[2020-08-29] MEDS ORDERED: ONDANSETRON INJ 4 MG/2 ML VIAL ONE (07:00)
[2020-08-29] MEDS ORDERED: ceFAZolin SODIUM 1 GM VIAL ONE (07:00)
[2020-08-29] MEDS ORDERED: HYDROmorphone HCL INJ 2 MG/ML VIAL ONE (11:54)
[2020-08-29] MEDS ORDERED: KETAMINE HCL 100 MG/ML VIAL ONE (11:54)
[2020-08-29] MEDS ORDERED: SODIUM CHL 0.9% 50ML MIN-BAG+ 50 ML IVPB ONE (12:45)
[2020-08-29] MEDS ORDERED: VANCOMYCIN HCL INJ 1,000 MG VIAL IVPB ONE (12:47)
[2020-08-29] MEDS ORDERED: fentaNYL CITRATE INJ 50 MCG/ML 2 ML AMP ONE (12:47)
[2020-08-29] MEDS ORDERED: SODIUM CHL 0.9% 250ML (AVIVA) 250 ML IVPB ONE (12:47)
[2020-08-29] MEDS ORDERED: ELECTROLYTE-A 1,000 ML IVS ONE (12:49)
[2020-08-29] MEDS ORDERED: ALUMINUM & MAGNESIUM HYDROXIDE 30 ML UD PO PRN (12:55)
[2020-08-29] MEDS ORDERED: BISACODYL SUPPOSITORY 10 MG PR PRN (12:55)
[2020-08-29] MEDS ORDERED: BENZOCAINE-MENTH LOZ (CEPACOL) 1 EA LOZ MT PRN (12:55)
[2020-08-29] MEDS ORDERED: ACETAMINOPHEN 325 MG TAB PO PRN (12:55)
[2020-08-29] MEDS ORDERED: TEMAZEPAM 15 MG CAP PO PRN (12:55)
[2020-08-29] MEDS ORDERED: MAGNESIUM HYDROXIDE 30 ML UD PO PRN (12:55)
[2020-08-29] MEDS ORDERED: ZOLPIDEM TARTRATE 5 MG TAB PO PRN (12:55)
[2020-08-29] MEDS: ceFAZolin SODIUM 1 GM VIAL ONE ×3 (13:00→14:00)
[2020-08-29] MEDS: BUPIVACAINE 0.5% 30 ML VIAL INJ ONE ×2 (13:25→13:39)
[2020-08-29] MEDS: BUPIVACAINE LIPOSOME 13.3 MG/ML VIAL INJ ONE ×2 (13:39→13:55)
[2020-08-29] MEDS: VANCOMYCIN HCL INJ 1,000 MG VIAL IVPB ONE ×2 (13:39→14:00)
[2020-08-29] MEDS ORDERED: LEVALBUTEROL NEBS 1.25 MG/3 ML VIAL NEB ONE (14:19)
--- NOTE | 2020-08-29 15:17 | RAD ---
2 radiographs left hip Indication: postop Comparison: August 28, 2020 Impression: ORIF of a left femoral neck fracture noted with intramedullary femoral paulina, distal interlocking screw, and a large femoral neck screw. 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 Osteopenia. If this is a new finding, DEXA scan recommended as well as evaluation for possible osteoporosis treatment. Electronically signed by: Sandro Benson MD 08/29/2020 3:15 PM CDT
--- NOTE | 2020-08-29 15:26 | RAD ---
EXAM DESCRIPTION: Pelvis,2 or More Views CLINICAL HISTORY: 89 years Male, postop COMPARISON: None. FINDINGS: Orthopedic hardware in the left proximal femur traversing femoral neck fracture with anatomic alignment. Degenerative narrowing of the hip joints. Marked degenerative changes at the pubic symphysis. Vascular calcifications in the pelvis and in the inguinal regions. Air in the soft tissues on the left consistent with recent surgery. AP and frog leg lateral views of pelvis and both hips are included. IMPRESSION: Internal fixation of proximal left femoral neck fracture. Electronically signed by: Jericho Arreola MD 08/29/2020 3:24 PM CDT
[2020-08-29] MEDS ORDERED: ACETAMINOPHEN IV 1000MG 1,000 MG in PREMIX BOTTLE 1 BOTTLE IVPB ONE (16:01)
[2020-08-29] MEDS: ceFAZolin SODIUM 2 GM in SODIUM CHLORIDE 0.9% 100ML 100 ML IVPB SCH (19:27)
[2020-08-29] MEDS: CYCLOBENZAPRINE HCL 10 MG TAB PO PRN (20:40)
[2020-08-29] MEDS: HYDROcodone 5MG/APAP 325MG 1 EA TAB PO PRN (20:40)
[2020-08-30] MEDS ORDERED: PANTOPRAZOLE SODIUM IV 40 MG VIAL ONE (02:35)
[2020-08-30] MEDS: ceFAZolin SODIUM 2 GM in SODIUM CHLORIDE 0.9% 100ML 100 ML IVPB SCH ×2 (03:00→11:17)
[2020-08-30] MEDS: PANTOPRAZOLE SODIUM IV 40 MG VIAL IV SCH (06:08)
[2020-08-30] MEDS: ENOXAPARIN SODIUM 30 MG/0.3 ML SYG SUBCU SCH ×2 (09:18→20:25)
[2020-08-30] MEDS: HYDROcodone 5MG/APAP 325MG 1 EA TAB PO PRN ×3 (09:18→23:01)
--- NOTE | 2020-08-30 09:35 | PN ---
SUPERVISING PHYSICIAN: Kimberlee West MD DATE: 08/29/20 SUBJECTIVE: The patient just returned from surgery and is resting comfortably. He does not appear to be in any distress. His is at the bedside. He did well intraoperatively. Postoperatively, he has remained stable. OBJECTIVE: VITAL SIGNS: Temperature 97.0, pulse 68, blood pressure 140/70, respirations 16, saturation 96% on 2 liters nasal cannula. GENERAL: The patient is resting comfort, does not appear to be in any distress. CHEST: Lungs are clear to auscultation bilaterally. HEART: Regular rate and rhythm. ABDOMEN: Soft, nontender. Positive bowel sounds. EXTREMITIES: Left hip has dressing place that is clean and dry. Distal pulses are strong. Capillary refills is brisk. NEUROLOGIC: Alert and oriented times three. LABORATORY: Postoperative hemoglobin and hematocrit is pending. RADIOLOGY: Postoperative hip x-ray shows ORIF of the left femoral neck fracture noted intramedullary femoral paulina, distal interlocking screw and a large femoral neck screw. Please see that report for details. ASSESSMENT: 1. Acute left hip fracture secondary to ground level fall, status post Gamma nailing postoperative day 0. 2. Chronic atrial fibrillation with a pacemaker on chronic anticoagulation with Xarelto. 3. IGG lambda multiple myeloma with no history of remission with labs looking to be at baseline levels, including calcium level and creatinine. 4. Iron-deficiency anemia showing to be fairly stable. 5. Lumbar disc disease. PLAN: We will continue to follow the patient postoperatively with physical therapy and rehabilitation. We will provide pain control. His does not want him to have morphine as apparently this does not set well with him. He gets a little uncontrollable. Therefore, we will try [place] or if we need to, we can escalate to fentanyl. We will resume his Xarelto probably starting tomorrow. Until then, he remains on DVT prophylaxis per protocol. He is on a PPI. I anticipate hopefully discharging him in the next 24 to 48 hours per physical therapy and Dr. Whitman. At this point, I am not sure what the plans are for rehab. More likely, it will be in [place] or possibly physical therapy at home. We will continue to develop discharge plan. Until then, we will continue to monitor and treat as needed. #[id number] [facility]
--- NOTE | 2020-08-30 10:45 | OP ---
DATE OF PROCEDURE: 08/29/20 PREOPERATIVE DIAGNOSIS: 1. Left femoral neck fracture. POSTOPERATIVE DIAGNOSIS: 1. Left femoral neck fracture. PROCEDURE: 1. Gamma nail. SURGEON: Kapil Whitman MD. WELLNESS AMBASSADOR: Kev Sheriff CST, SA-C. ANESTHESIA: General anesthesia. COMPLICATIONS: None. FINDINGS: Nondisplaced fracture of the femoral neck involving the lateral cortex. INDICATION: Mr. Ospina has a history of a fall with the acute onset of pain in the hip. Mr. Ospina, his and I discussed options. Although the fracture was nondisplaced, Mr. Ospina has pretty significant upper extremity weakness. Because of that, I was afraid there would be difficulty with him being non- weightbearing on that extremity. We discussed nonoperative treatment, percutaneous screw treatment, and Gamma nail. I felt that Gamma nailing would be the most prudent since it would be in my opinion more protected with regards to his weightbearing status. After discussing the risks, benefits and alternatives to operative therapy, informed consent was obtained for Gamma nailing. PROCEDURE: The patient was brought to the Operating Room and placed in the supine position. General anesthesia was administered and the patient was placed on the fracture table. The fracture was provisionally reduced under fluoroscopic imaging and after reduction, the leg and hemipelvis were sterilely prepped and draped. An incision was made just proximal to the greater trochanter and dissection was carried through the iliotibial band and down to the greater trochanter. A starting pin was placed and a one-step reamer was used to open the femoral canal. A 125 degree angled Gamma nail was inserted into the canal to the appropriate level. A guide pin was placed from the lateral cortex into the femoral head. The appropriate length compression screw was measured and inserted with the placement guided under direct imaging. Following that, the distal locking screw was drilled, measured, and placed under imaging. The proximal locking screw was placed through the outrigger into the top of the nail and the outrigger removed. The final construct was imaged and the wounds were thoroughly irrigated, followed by closure with Monocryl suture. Sterile dressings were placed. The patient was awoken from anesthesia and taken to the Recovery Room. POSTOPERATIVE PLAN: He will be partial weightbearing on postoperative day 1. #[id number] [facility]
[2020-08-30] MEDS: CYCLOBENZAPRINE HCL 10 MG TAB PO PRN (23:01)
[2020-08-31] MEDS: PANTOPRAZOLE SODIUM IV 40 MG VIAL IV SCH (06:01)
--- NOTE | 2020-08-31 08:20 | PN ---
SUPERVISING PHYSICIAN: Kimberlee West MD DATE: 08/30/20 SUBJECTIVE: The patient is doing well today. He is actually much more alert and eating lunch with his . He is interactive as prior to going under anesthesia and having surgery. He has no complaints. He says his pain is well controlled. OBJECTIVE: VITAL SIGNS: Stable and afebrile with temperature 98.4, pulse 67, blood pressure 141/61, respirations 16 to 18, saturation 95% on room air. GENERAL: The patient is resting comfortably. He is alert, does not appear to be in any distress. CHEST: Lungs are clear to auscultation. HEART: Regular rate and rhythm. ABDOMEN: Soft, nontender. Positive bowel sounds. EXTREMITIES: Left hip has dressing place that is clean and dry. Pulses are strong. Capillary refills is brisk. NEUROLOGIC: Alert and oriented times three. LABORATORY: Postoperative hemoglobin 10.3 and hematocrit 30.6. Repeat chemistry today shows his creatinine is a little elevated at 1.38. BUN is up to 28. Other electrolytes are within normal limits. Anion gap is a little elevated. Calcium 10.8 compared to 11.3 on admission. RADIOLOGY: No new exams. ASSESSMENT: 1. Acute left hip fracture secondary to ground level fall, status post repair with Gamma nail, postoperative day 1. 2. Chronic atrial fibrillation with a pacemaker on chronic anticoagulation with Xarelto. 3. IgG lambda multiple myeloma with no history of remission with labs looking to be at baseline levels, including calcium level and creatinine. 4. Iron-deficiency anemia, fairly stable. 5. Lumbar disc disease. PLAN: We will continue to follow the patient as he recovers with physical therapy. He remains on Lovenox until we can clarify his Xarelto order, which I believe is 2.5 q.12h. He continues to work with physical therapy. I am not sure what the outpatient plan is for management since he lives in [place]. That is still in process. I anticipate to hopefully be able to discharge by Friday. Until then, we will continue to monitor and treat as needed. #[id number] [facility]
[2020-08-31] MEDS: ENOXAPARIN SODIUM 30 MG/0.3 ML SYG SUBCU SCH ×2 (08:57→21:02)
[2020-08-31] MEDS: HYDROcodone 5MG/APAP 325MG 1 EA TAB PO PRN (10:34)
--- NOTE | 2020-08-31 11:17 | PN ---
DATE: 08/31/20 SUBJECTIVE: Tyrone is doing well today and is up to a chair. OBJECTIVE: Afebrile. Vital signs stable. Wounds are clean. There are no signs or symptoms of infection. ASSESSMENT: Status post Gamma nail. PLAN: The plan at this point is for him to be discharged to [facility] tomorrow. [facility][id number] [facility]
--- NOTE | 2020-08-31 11:18 | PN ---
DATE: 08/30/20 SUBJECTIVE: He is comfortable right now without significant pain. OBJECTIVE: Afebrile. Vital signs stable. Dressings are clean, dry and intact. ASSESSMENT: Status post Gamma nail. PLAN: The plan at this point is for him to start partial weightbearing. [facility][id number] [facility]
[2020-08-31] MEDS: IV SET AND CAP CHANGE INJ INJ SCH (21:02)
[2020-09-01] MEDS: PANTOPRAZOLE SODIUM IV 40 MG VIAL IV SCH (05:57)
--- NOTE | 2020-09-01 08:11 | PN ---
SUPERVISING PHYSICIAN: Kimberlee West MD DATE: 08/31/20 SUBJECTIVE: The patient is sitting up in the chair in his room. His is at the bedside. He has no complaints of nausea, vomiting, chest pain, shortness of breath or excessive pain. We discussed his discharge planning and that he will be evaluated by [facility] and hopefully he can be discharged today or tomorrow. OBJECTIVE: VITAL SIGNS: Temperature 98.4, heart rate 67, blood pressure 132/67, respiratory rate 18, O2 saturation 94% on room air. RESPIRATORY: Essentially clear to auscultation bilaterally. CARDIAC: Regular rate and rhythm NEUROLOGIC: Awake, alert and oriented times three. LABORATORY: There are no labs or films to report at this time. ASSESSMENT: 1. Acute left hip fracture secondary to ground level fall, status post repair with Gamma nail, postoperative day 2. 2. Chronic atrial fibrillation with a pacemaker on chronic anticoagulation with Xarelto. 3. IgG lambda multiple myeloma with no history of remission with labs looking to be at baseline levels, including calcium level and creatinine. 4. Iron-deficiency anemia, fairly stable. 5. Lumbar disc disease. PLAN: We will continue present supportive care. We will await [facility] consult today for rehabilitation. After their consult, we will hope to discharge this afternoon or tomorrow to their facility for his rehab and we will continue with his physical therapy. Otherwise, we will continue to monitor the patient closely and follow as needed. [facility][id number] [facility]
[2020-09-01] MEDS: ENOXAPARIN SODIUM 30 MG/0.3 ML SYG SUBCU SCH (09:01)
[2020-09-01 10:29] VITALS: O2SAT 97
--- NOTE | 2020-09-01 11:23 | DS ---
SUPERVISING PHYSICIAN: Kimberlee West MD DISCHARGE DIAGNOSIS: 1. Acute left hip fracture secondary to ground level fall, status post repair with Gamma nail, postoperative day 3, surgery performed by Dr. Kapil Whitman, orthopedic surgeon 2. Chronic atrial fibrillation with a pacemaker on chronic anticoagulation with Xarelto. 3. IgG lambda multiple myeloma with no history of remission with labs looking to be at baseline levels, including calcium level and creatinine. 4. Iron-deficiency anemia, stable. 5. Lumbar disc disease. HISTORY OF PRESENT ILLNESS: This is an 89-year-old male patient who as a past medical history of multiple myeloma with chronic atrial fibrillation on Xarelto with a pacemaker who came to the Emergency Room on the day of admission for complaints of left hip pain. The patient does have dementia and his endorsed that he fell the day prior to coming into the hospital. He had tripped over his reclining chair and complained of pain in his left hip. He was unable to actually stand or walk. In the Emergency Room, revealed he had an incomplete cortical fracture of the subcapital lateral left femoral neck. Dr. Whitman was consulted and the patient was admitted for preoperative workup and anticipation of a Gamma nail repair the next day. The patient was admitted in stable condition. HOSPITAL COURSE: The patient was placed on Dr. Whitman's preoperative orders. The following day, he had a Gamma nail procedure for repair of the left hip. There were no intraoperative complications. His home medications were restarted and after surgery, his Xarelto was held as he was on Lovenox per Dr. Whitman's protocol. He did physical therapy as ordered and although he did progress fairly well, it was decided that he would get an evaluation by [facility] to help with his rehab. He was approved for admission to [facility] and today he will be discharged to [facility] in stable condition. LABORATORY: WBC 5.7, hemoglobin 11.3, hematocrit 33.7 on admission. Postoperatively, his hemoglobin dropped to 10.3 and hematocrit 30.6 and then yesterday hemoglobin was 9.5 and hematocrit 28.3. Platelet count was slightly low at 98. Electrolytes were basically within normal limits. He did have an elevated bilirubin of 1.8. Urinalysis was basically unremarkable. RADIOLOGY: Per the EMR. PLAN: The patient will be discharged to [facility] in stable condition. He is to resume his previous diet and increase his activity as per physical therapy. He will have a followup appointment with Dr. West in 1 to 2 weeks after discharge. He is also to followup with Dr. Whitman as previously instructed. He is to continue his Xarelto as previously ordered. He is to return to the hospital or followup with Dr. Whitman for any problems or complications. DISCHARGE MEDICATIONS: 1. Tamsulosin. 2. Hydrocodone. 3. Xarelto. #[id number] [facility]
[2020-09-01 12:46] VITALS: BP 126/64; TEMP 98.3
== END 2020-09-01 15:10 | DRG 481 ==
LOC: ER 10:10 → OBSVTOIN 15:05 → MS 15:05
PROVIDERS: ADMIT Nurse Practitioner Family; ATTEND Nurse Practitioner Acute Care
PROC: 0QS736Z Reposition Left Upper Femur with Intramedullary Internal Fixation Device, Percutaneous Approach (ICD-10-PCS; principal; 2020-08-29 12:50)
DX: S72.012A Unspecified intracapsular fracture of left femur, initial encounter for closed fracture (principal); I48.20 Chronic atrial fibrillation, unspecified; C90.00 Multiple myeloma not having achieved remission; W01.0XXA Fall on same level from slipping, tripping and stumbling without subsequent striking against object, initial encounter; D50.9 Iron deficiency anemia, unspecified; M51.36 Other intervertebral disc degeneration, lumbar region; R29.898 Other symptoms and signs involving the musculoskeletal system; F03.90 Unspecified dementia, unspecified severity, without behavioral disturbance, psychotic disturbance, mood disturbance, and anxiety; Y93.9 Activity, unspecified; Y92.009 Unspecified place in unspecified non-institutional (private) residence as the place of occurrence of the external cause; Z88.0 Allergy status to penicillin; Z95.0 Presence of cardiac pacemaker; Z79.01 Long term (current) use of anticoagulants; Z79.899 Other long term (current) drug therapy

== ENCOUNTER → 2020-09-20 | Outpatient (CLI) | payer MEDICARE, BC | LOC: LAB.O 12:50 | PROVIDERS: ATTEND Internal Medicine Hematology & Oncology | DX: C90.00 Multiple myeloma not having achieved remission (principal); D50.9 Iron deficiency anemia, unspecified; D63.1 Anemia in chronic kidney disease; D80.1 Nonfamilial hypogammaglobulinemia; N18.30 Chronic kidney disease, stage 3 unspecified; I48.91 Unspecified atrial fibrillation; M48.00 Spinal stenosis, site unspecified; M89.8X9 Other specified disorders of bone, unspecified site; M19.90 Unspecified osteoarthritis, unspecified site ==

== ENCOUNTER → 2020-09-22 | Outpatient (CLI) | payer MEDICARE, BC ==
--- NOTE | 2020-09-24 19:00 | RAD ---
EXAM DESCRIPTION: Hip,Left 2 Views: CR/DR/XR CLINICAL HISTORY: 89 years Male HIP PAIN LEFT COMPARISON: Postsurgical radiographs left hip August 29 TECHNIQUE: Two Views. AP neutral AP ABDuction. FINDINGS: Proximal left femoral intramedullary nail with a Zickel-type nail in the femoral neck and head, and anchoring screw in the inferior nail. Alignment of the hardware is stable. No complications at the fracture site. Moderate arthrosis again noted in the right hip joint. Overall bone density is decreased. IMPRESSION: Follow-up ORIF for left hip fracture stable hardware and alignment of the left hip with no complication seen. Electronically signed by: Kev Zaidi MD 09/24/2020 6:59 PM CDT
== END ==
LOC: RAD 09:18
PROVIDERS: ATTEND Orthopaedic Surgery
DX: M25.552 Pain in left hip (principal); Z98.890 Other specified postprocedural states; Z87.81 Personal history of (healed) traumatic fracture

== ENCOUNTER → 2020-09-27 | Outpatient (CLI) | payer MEDICARE, BC | LOC: YCHH 13:19 | PROVIDERS: ATTEND Family Medicine | DX: N39.0 Urinary tract infection, site not specified (principal) ==

== ENCOUNTER → 2020-10-03 | Outpatient (CLI) | payer MEDICARE, BC | LOC: GMAE 11:21 | PROVIDERS: ATTEND Family Medicine | DX: N39.0 Urinary tract infection, site not specified (principal); N18.9 Chronic kidney disease, unspecified; D64.9 Anemia, unspecified; E78.5 Hyperlipidemia, unspecified; E03.9 Hypothyroidism, unspecified; N40.0 Benign prostatic hyperplasia without lower urinary tract symptoms ==

== ENCOUNTER → 2020-10-12 | Outpatient (CLI) | payer MEDICARE, BC | LOC: GMAE 14:12 | PROVIDERS: ATTEND Family Medicine | DX: R33.9 Retention of urine, unspecified (principal) ==

== ENCOUNTER → 2020-11-03 | Outpatient (CLI) | payer MEDICARE, BC ==
--- NOTE | 2020-11-05 10:07 | RAD ---
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 TECHNICAL: AP and lateral x-ray images of the left hip. FINDINGS: Internal fixation of left hip persists without loosening or failure. No acute fracture. Moderate degenerative changes of the left hip persist. IMPRESSION: Stable internal fixation without failure. No acute fracture or dislocation. Electronically signed by: Micah Hurley MD 11/05/2020 10:06 AM [facility]
== END ==
LOC: RAD 10:17
PROVIDERS: ATTEND Orthopaedic Surgery
DX: S72.102D Unspecified trochanteric fracture of left femur, subsequent encounter for closed fracture with routine healing (principal); Z79.890 Hormone replacement therapy

== ENCOUNTER 2020-11-18 00:32 | Observation (INO) | payer MEDICARE, BC ==
[2020-11-18] MEDS ORDERED: KETOROLAC TROMETHAMINE INJ 30 MG/ML VIAL IM ONE (01:20)
--- NOTE | 2020-11-18 01:39 | CT ---
PROCEDURE: CT LUMBAR SPINE WITHOUT IV CONTRAST CLINICAL HISTORY: fall with pain, known osteoporosis and MM TECHNIQUE: Contiguous axial CT images obtained through the lumbar spine without IV contrast. Coronal and sagittal reformatted images also provided. This exam was performed according to our departmental dose-optimization program, which includes automated exposure control, adjustment of the mA and/or kV according to patient size and/or use of iterative reconstruction technique. COMPARISON: 07/22/2019 FINDINGS: Vertebra: Osseous structures are osteopenic. Stable grade 1 anterolisthesis of L4 on L5. Acute L2 compression fracture with approximately 20% loss of overall height and 5 mm retropulsion. Disc spaces: Multilevel degenerative changes most pronounced at L4-L5 and L5-S1. Moderate to severe multilevel facet arthropathy. The central thecal sac is mildly narrowed at L2 and moderately narrowed at L3-L4 and L4-L5. Soft tissues: Unremarkable Other: Moderate to severe atherosclerotic disease. The prostate is enlarged. IMPRESSION: Acute L2 compression fracture. Electronically signed by: Jose Elias Del Toro MD 11/18/2020 1:37 AM [facility]
--- NOTE | 2020-11-18 02:04 | CT ---
EXAM: CT Pelvis Without Intravenous Contrast CLINICAL HISTORY: The patient is 89 years old and is Male; fall with pain TECHNIQUE: Axial computed tomography images of the pelvis without intravenous contrast. Sagittal and coronal reformatted images were created and reviewed. This CT exam was performed using one or more of the following dose reduction techniques: automated exposure control, adjustment of the mA and/or kV according to patient size, and/or use of iterative reconstruction technique. COMPARISON: Left hip x-ray 08/29/2020, 09/22/2020. FINDINGS: Bowel: Unremarkable. No obstruction. No mucosal thickening. Appendix: No findings to suggest acute appendicitis. Intraperitoneal space: Unremarkable. No free air. No significant fluid collection. Bladder: Unremarkable. No stones. Reproductive: Enlarged prostate. Bones/joints: Intramedullary nail with intertrochanteric screw in the proximal left femur. Redemonstration of a fracture in the left subcapital femoral neck with subcortical cyst. Fragmentation of the left greater trochanter adjacent to the intramedullary nail with bone fragments in the surrounding soft tissues. Disc space narrowing and degenerative endplate changes and neural foraminal narrowing at L4-L5 and L5-S1. Mild/moderate spinal canal stenosis at L4-L5. Right acetabular over coverage of the femoral head. 8 mm of anterolisthesis of L4 on L5. Osteopenia. Soft tissues: Unremarkable. Vasculature: Moderate to severe atherosclerotic vascular calcification of the aorta and branch vessels. No lower abdominal aortic aneurysm. Lymph nodes: Unremarkable. No enlarged lymph nodes. IMPRESSION: Intramedullary nail with intertrochanteric screw in the proximal left femur. Redemonstration of a fracture in the left subcapital femoral neck with subcortical cyst. Fragmentation of the left greater trochanter adjacent to the intramedullary nail with bone fragments in the surrounding soft tissues which may be postoperative but is not clearly seen on the postoperative comparison x-rays. Electronically signed by: Kapil Byrd MD 11/18/2020 2:02 AM [facility]
[2020-11-18] MEDS ORDERED: MORPHINE SULFATE INJ 10 MG/ML VIAL IV ONE (02:09)
--- NOTE | 2020-11-18 02:16 | ED.PDOC ---
History of Present Illness - General Chief Complaint: Trauma Stated Complaint: low back pain, right hip pain Time Seen by Provider: 11/18/20 00:33 Source: patient, family Exam Limitations: clinical condition - History of Present Illness Initial Comments: The patient is a 89-year-old male presenting with his after having fallen while getting into bed tonight. The patient normally ambulates with a walker and he was ambulating with a walker when he fell. He fell backwards against the wall. He was reporting some pain in his lower back mostly. He actually moves his lower extremities well against gravity and with minimal discomfort. No pain in the hips. No real pain in the pelvis. The patient had a left hip surgery about 3 months ago and he is not having any pain or significant limitation of motion there. Most of the pain is in the lower back around the L2-L3 region. No definite step-off. No obvious acute neurological changes. The patient has very significant generalized weakness to start with. He has significant osteoporosis and also has multiple myeloma. He is on a blood thinner already according to his . He did not hit his head. He is not having any altered mental state compared to baseline. No neck pain. No known coronavirus exposure and no coronavirus symptoms. Timing/Duration: momentarily Severity: moderate Improving Factors: immobilization - And lying back Worsening Factors: movement - And sitting up Associated Symptoms: denies symptoms Allergies/Adverse Reactions: Allergies Penicillins Allergy (Verified 08/28/20 10:29) Home Medications: Ambulatory Orders Tamsulosin [Flomax] 0.4 mg PO DAILY #7 cap 03/30/20 Apixaban [Eliquis] 2.5 mg PO BID #60 tab 09/01/20 Chlorhexidine Gluc 4% 15Ml [Hibiclens 15ml Unit Dose] 15 ml .ROUTE BID #60 [place] 09/01/20 HYDROcodone 5MG/APAP 325MG [[place] 5/325] 1 ea PO Q4H PRN tab 09/01/20 Review of Systems - Review of Systems Constitutional: States: no symptoms reported EENTM: States: no symptoms reported Respiratory: States: no symptoms reported Cardiology: States: no symptoms reported Gastrointestinal/Abdominal: States: no symptoms reported Genitourinary: States: no symptoms reported Musculoskeletal: States: back pain Skin: States: no symptoms reported Neurological: States: see HPI Endocrine: States: no symptoms reported All other Systems: No Change from Baseline Past Medical History (General) - Patient Medical History Hx Seizures: No Hx Stroke: No Hx Asthma: No Hx of COPD: No Hx Cardiac Disorders: Yes - A-fib, pacemaker Hx Congestive Heart Failure: No Hx Pacemaker: Yes Hx Hypertension: No Hx Diabetes: No Hx Cancer: Yes - multiple myeloma Hx MRSA: No - Vaccination History Hx Tetanus, Diphtheria Vaccination: No Hx Influenza Vaccination: Yes Hx Pneumococcal Vaccination: Yes - Social History Hx Tobacco Use: No Hx Alcohol Use: No Hx Substance Use: No Hx Substance Use Treatment: No Hx Depression: No Hx Physical Abuse: No Hx Emotional Abuse: No Family Medical History - Family History Mother Family History: Unknown Physical Exam - Physical Exam General Appearance: Alert, Frail, Other - The patient is obviously uncomfortable Eye Exam: right normal - Extraocular movements are intact. No proptosis. No evidence of acute orbital trauma. Ears, Nose, Throat: hearing grossly normal - Chronically decreased bilaterally, normal pharynx Neck: non-tender, supple Respiratory: lungs clear, normal breath sounds, no respiratory distress, no accessory muscle use Cardiovascular/Chest: normal peripheral pulses, no edema, other - Regular rate Peripheral Pulses: radial,right: 2+, radial,left: 2+ Gastrointestinal/Abdominal: non tender, soft Rectal Exam: deferred Back Exam: no vertebral tenderness - See history of present illness Extremity: normal range of motion - Given his chronic limitations, no pedal edema, normal capillary refill Neurologic: 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 Skin Exam: normal color Comments: Vital Signs - 24 hr 11/18/20 11/18/20 11/18/20 00:36 01:00 02:00 Temperature 97.7 F Pulse Rate 80 Pulse Rate [ 80 60 60 Left Radial] Respiratory 18 18 20 Rate Blood Pressure 161/82 154/69 158/68 [Right Arm] O2 Sat by Pulse 98 97 97 Oximetry Progress - Progress Progress: 11/18/20 02:21 The patient is an 89-year-old male that fell while getting into bed. The patient is of advanced age and does have significant weakness to start with. Additionally he has multiple myeloma which may impede future healing. The patient has a L2 compression fracture and uncontrolled pain related to that. The pain does make the patient be unable to perform his activities of daily living and his is unable to compensate for that at this time. The patient is going to be placed as an inpatient for pain control and further physical therapy evaluation over the next day or 2 to see if he is going to require a longer term care and rehab facility placement in the coming week. The patient may benefit from a TLSO placement in the coming week as well. He does appear to be neurologically at his baseline at this point. Admit for continued care, monitoring and assistance as needed. We are starting off with small doses of morphine as the patient does have a history of becoming confused at night, related mostly to his dementia. He did receive 1 dose of Toradol here as well. 11/18/20 03:03 On the routine lab work for admission, the patient has found to have a calcium level of 14. This would certainly explain why the patient had been declining over the past few months. This is almost certainly due to his multiple myeloma. The patient will be receiving a couple of liters of IV fluids and he will likely need at least a small dose of Lasix tomorrow. He is receiving calcitonin though in the less preferred intranasal form, than a subcutaneous form due to availability. He is receiving zoledronic acid and dexamethasone as well. His does understand that these are temporizing measures. She reports that he has had a significant decline in functional status and quality of life over the last year or so. After a discussion with his , she has elected to sign an advanced directive essentially refusing resuscitation in case the patient codes. Again the patient does have significant dementia and cannot make this decision himself. Parathyroid hormone and phosphate levels are being sent for completion of work-up. He will need telemetry monitoring. Prognosis for this patient is well less than a couple of months. The patient does have an oncologist in [place], and we will try and contact him in the morning. Admit for continued care. - Results/Orders Results/Orders: CT scan of the lumbar spine and pelvis show an acute compression fracture with a 20% loss of height and 5 mm retropulsion at the L2 level. Numerous chronic degenerative changes. The patient also has poor healing of the left femur fracture site from the previous repair. He is not having any pain in this area on exam. See reports for details. EKG shows a paced ventricular rhythm at 71 bpm. Laboratory Tests 11/18/20 11/18/20 11/18/20 02:17 02:17 02:17 WBC 5.4 RBC 3.30 L Hgb 9.7 L Hct 28.7 L MCV 86.8 MCH 29.4 MCHC 33.8 RDW 21.7 H Plt Count 133 MPV 7.0 L Absolute Neuts (auto) 3.60 Absolute Lymphs (auto) 0.90 L Absolute Monos (auto) 0.60 Absolute Eos (auto) 0.20 Absolute Basos (auto) 0.10 Neutrophils % 66.1 Lymphocytes % 17.6 L Monocytes % 12.1 H Eosinophils % 3.2 Basophils % 1.0 Sodium 138 Potassium 4.3 Chloride 99 L Carbon Dioxide 27 Anion Gap 16.3 BUN 37 H Creatinine 1.65 H BUN/Creatinine Ratio 22.4 H Random Glucose 129 H Serum Osmolality 286.1 Calcium 14.4 H* Phosphorus 2.4 L Total Bilirubin 1.4 H AST 33 ALT 20 Alkaline Phosphatase 70 Serum Total Protein 8.2 Albumin 3.2 Globulin 5.0 H Albumin/Globulin Ratio 0.6 L - EKG/XRAY/CT CT Ordered: Yes Departure - Departure Clinical Impression: Inability to perform activities of daily living, Advanced age, Uncontrolled pain, Hypercalcemia Fall at home Qualifiers: Encounter type: initial encounter Qualified Code(s): W19.XXXA - Unspecified fall, initial encounter Multiple myeloma Qualifiers: Multiple myeloma remission status: not in remission Qualified Code(s): C90.00 - Multiple myeloma not having achieved remission Closed compression fracture of L2 vertebra Qualifiers: Encounter type: initial encounter Qualified Code(s): S32.020A - Wedge compression fracture of second lumbar vertebra, initial encounter for closed fracture Disposition: Admit Patient Departure Forms: ED Discharge - Pt. Copy, Patient Portal Self Enrollment Instructions: DI for Trauma Referrals: VIVI CALDERON MD [Primary Care Provider] - 1-2 Weeks Home Medications: Ambulatory Orders Tamsulosin [Flomax] 0.4 mg PO DAILY #7 cap 03/30/20 Apixaban [Eliquis] 2.5 mg PO BID #60 tab 09/01/20 Chlorhexidine Gluc 4% 15Ml [Hibiclens 15ml Unit Dose] 15 ml .ROUTE BID #60 [place] 09/01/20 HYDROcodone 5MG/APAP 325MG [[place] 5/325] 1 ea PO Q4H PRN tab 09/01/20
[2020-11-18] MEDS ORDERED: SODIUM CHLORIDE 0.9% 1000ML 1,000 ML IVS ONE ×2 (02:38→02:58)
[2020-11-18] MEDS ORDERED: DEXAMETHASONE INJ 4 MG/ML VIAL IV ONE (02:43)
[2020-11-18] MEDS ORDERED: ZOLEDRONIC ACID INJ 4 MG in SODIUM CHLORIDE 0.9% 100ML 100 ML IVPB ONE (02:51)
[2020-11-18] MEDS ORDERED: CALCITONIN-SALMON NASAL SPRAY 2,200 IU/ML BOTTLE ALTNOS ONE (02:57)
--- NOTE | 2020-11-18 03:06 | HP ---
SUPERVISING PHYSICIAN: Jairo Kam MD CHIEF COMPLAINT: Fall with back pain and right hip pain. HISTORY OF PRESENT ILLNESS: Mr. Ospina is an 89 year-old male patient who has been in the Emergency Room earlier this morning, came in by his , actually had fallen while trying to get in the bed. He normally ambulates with a walker and apparently was ambulating when he fell and fell backward against the wall but did not hit is head. He was complaining of no pain in his hips, no pain in his pelvis. He does have a history of recent hip surgery in August after having a hip fracture. The majority of his pain in the Emergency Room was around the L2, L3 region. No reported neurological changes by the Emergency Room physician on initial exam, just generalized weakness. He has a history of multiple myeloma and osteoporosis. His mental state is at baseline according to his on initial presentation. CT of his L-spine demonstrated an acute L2 compression fracture. Pelvis CT with no acute findings and demonstrated an intramedullary nail with an intertrochanteric screw in the proximal left femur, re-demonstration of a fracture of the left subcapital femoral neck. His laboratory studies showed he was anemic with hemoglobin 9.7, hematocrit 28.7. Platelet count was within normal limits at 133,000. Differential didn't show to be with a left shift. His chemistries showed his creatinine was 1.65 which is elevated for him as his baseline creatinine prior to surgery was 1.0. Also of note was a critical value of calcium levels which was at 14.4. The patient was not demonstrating any signs of hypercalcemia but given his multiple myeloma with acute L2 fracture and his weakness, the patient is going to be admitted for further evaluation and treatment with physical therapy and further treatment of hypercalcemia. The patient was placed in observation in stable condition. PAST MEDICAL HISTORY: 1. IGG lambda multiple myeloma with continued IGA elevation in spike with patient deferring therapy currently. 2. 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 3. Chronic deconditioning. 4. Osteonecrosis associated with #1. 5. Chronic atrial fibrillation on Eliquis with a pacemaker. 6. Dementia. PAST SURGICAL HISTORY: 1. Gamma nail left hip status post fracture in August 2020. 2. Left inguinal hernia repair. 3. Pacemaker implantation in 2018 secondary to atrial fibrillation. 4. Heel spur removed. HOME MEDICATIONS: 1. Flomax 0.4 mg daily. 2. Aricept 5 mg daily. 3. Eliquis 2,5 mg b.i.d. ALLERGIES: PENICILLIN. FAMILY HISTORY: Noncontributory. 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 He is . He lives in [place], [place]. He has one son. He has no history of tobacco usage and drinks on rare occasions. He does not use any illicit drugs. REVIEW OF SYSTEMS: Difficult to fully obtain due to the patient's dementia. CONSTITUTIONAL: Denied any fevers, chills, general malaise or unintentional weight loss. HEENT: Denied any ear aches, sore throat, nasal congestion, headaches. RESPIRATORY: Denies any coughing, wheezing or shortness of breath. CARDIOVASCULAR: Denies any chest pains, palpitations or syncopal episodes. GASTROINTESTINAL: Denies any nausea, vomiting, diarrhea, constipation or abdominal pain. GENITOURINARY: Denies any dysuria, hematuria, polyuria. MUSCULOSKELETAL: As noted in History of Present Illness with acute L2 fracture status post fall. NEUROLOGIC: Denies any ataxia or seizures. Does have overall generalized weakness due to deconditioning but no focal motor deficits with ongoing dementias. SKIN: Denies any unexplained bleeding, bruising other than those associated with his chronic Eliquis. No transfusion reactions. PHYSICAL EXAMINATION: VITAL SIGNS: Temperature 97.5, pulse 0, blood pressure 130/68, respirations 18, satting 98% on room air. GENERAL: The patient does look frail but looks to be comfortable in no acute distress. He is alert. HEENT: No evidence of acute trauma. He has chronically decreased hearing bilaterally. Oropharynx is pink, moist without any lesions. NECK: Supple, nontender with full range of motion. CHEST: Lung sounds are clear to auscultation bilaterally without any rhonchi, wheezes or rales. HEART: Regular rate and rhythm without any appreciable murmurs, gallops, or rubs. ABDOMEN: Soft, nontender. Positive bowel sounds. RECTAL: Deferred. BACK: As noted in history of present illness. Some mild tenderness over L2 region but no obvious trauma or step-offs. EXTREMITIES: He does have chronic weakness but no obvious edema, clubbing or cyanosis. Range of motion both passive and active is good. NEUROLOGIC: Cranial nerves II-XII are grossly intact. He is alert and oriented to himself, not currently to location but seems to be at baseline mental status. No obvious neuromotor or sensory deficits. Facial features were symmetrical. Extraocular movements within normal limits. SKIN: Warm, pink and dry. LABORATORY: Initial white count was 5,400 with hemoglobin of 9/7, hematocrit 28.7, platelet count 133,000. Differential shows to be without a left shift. Chemistries show normal electrolytes, creatinine initially 1.65, BUN 37, glucose 129, calcium elevated at 14.4 with phosphorus of 2.4. Bilirubin 1.4. Liver functions all within normal limits. Urinalysis unremarkable, all within normal limits. Nasal swab for Covid-19 was negative. RADIOLOGY: Lumbar spine CT showed acute L2 compression fracture. Pelvis CT was without any acute findings. Please see those reports for details. Chest x-ray per radiology interpretation single view chest showed no acute cardiopulmonary process. ASSESSMENT: 1. Same level fall with resulting acute L2 compression fracture with no obvious associated deficits. 2. Electrolyte imbalance to include severe hypocalcemia with hypemagnesemia associated with his multiple myeloma. 3. History of recent left hip fracture with gamma nail of left hip with significant deconditioning. 4. Chronic atrial fibrillation with a pacemaker on chronic anticoagulation with Eliquis. 5. IGA lambda multiple myeloma with deferring current therapy followed by oncology in [facility] by Dr. Ruano to [facility], phone #[phone]. 6. Iron-deficiency anemia associated with multiple myeloma. 7. Chronic lumbar disc disease with acute L2 fracture as noted in #1. 8. Osteoporosis. 9. History of osteonecrosis followed by oral surgeon, no recommended treatment at current time. 10. History of dementia on Aricept based on levels. PLAN: Mr. Ospina is going to be admitted for further treatment and evaluation of L2 fracture as noted in his history as well as treatment of underlying hypercalcemia that is likely associated with his multiple myeloma. I did touch base with oncologist who recommended that we given him Decadron 40 mg four 4 days and continue to followup with oncology. He was treated in the Emergency Room with Calcitonin nasal spray, Decadron, 2 liters of fluid and Zoledronic acid. I will continue with IV fluids and continue recommendations with the Decadron 40 mg for four days per oncology. He remains on Eliquis. We will resume the rest of his medications as appropriate to his care. His who is his POA did make him a DNR at this time. The patient's prognosis is fairly poor considering he continues with worsening dementia and, of course, the current L2 fracture. There has been some discussion with hospice initially, with oncology but they deferred at that point. It may be that hospice is the best course of care at this point given his advanced age and his underlying comorbidities. As far as physical therapy evaluation, we will get this on Friday as well as talk to Dr. Whitman in regard to the possible need for a brace and will also talk to the family and decide further course of care in regard to possible hospice or more aggressive management considering he does have significant deconditioning and he is becoming difficult to manage at home. We will continue with IV fluids, monitor his labs closely, recheck his calciums as appropriate to care. I anticipate hopefully to be able to discharge him in the next 2-3 days. Until then, we will continue to monitor and treat as needed. #[id number] [facility]
[2020-11-18] MEDS ORDERED: MORPHINE SULFATE INJ 10 MG/ML VIAL IV PRN (07:13)
[2020-11-18] MEDS ORDERED: ACETAMINOPHEN 325 MG TAB PO PRN (07:13)
[2020-11-18] MEDS ORDERED: ONDANSETRON INJ 4 MG/2 ML VIAL IV PRN (07:13)
[2020-11-18] MEDS ORDERED: SODIUM CHLORIDE 0.9% (FLUSH) 10 ML SYG IV PRN (07:13)
[2020-11-18] MEDS ORDERED: IV SET AND CAP CHANGE INJ INJ SCH (07:30)
[2020-11-18] MEDS: SODIUM CHLORIDE 0.9% (FLUSH) 10 ML SYG IV SCH ×2 (10:21→20:39)
[2020-11-18] MEDS ORDERED: DEX 5% W/NACL 0.9% 1000ML 1,000 ML IVS PRN (11:39)
[2020-11-18] MEDS ORDERED: SODIUM CHLORIDE 0.9% 1000ML 1,000 ML ONE ×2 (11:56→19:18)
[2020-11-18] MEDS: SODIUM CHLORIDE 0.9% 1000ML 1,000 ML IVS PRN ×2 (11:57→20:39)
--- NOTE | 2020-11-18 13:49 | RAD ---
PROCEDURE:XR CHEST 1 VIEW HISTORY:cough COMPARISON: August 28, 2020 FINDINGS: The heart appears unremarkable. A left-sided pacemaker device is seen to be in place.. The lungs are clear there is no alveolar consolidation, effusion or pneumothorax. There are no acute bony or soft tissue abnormalities. IMPRESSION: No acute cardiopulmonary process. Electronically signed by: Nelson Rock MD 11/18/2020 1:47 PM [employer]
[2020-11-18] MEDS ORDERED: DEXAMETHASONE 4 MG TAB PO ONE (15:54)
[2020-11-18] MEDS: APIXABAN 5 MG TAB PO SCH (20:39)
[2020-11-18] MEDS ORDERED: ENOXAPARIN SODIUM 40 MG/0.4 ML SYG SUBCU SCH (21:00)
[2020-11-19] MEDS ORDERED: SODIUM CHLORIDE 0.9% 1000ML 1,000 ML ONE (04:03)
[2020-11-19] MEDS: SODIUM CHLORIDE 0.9% 1000ML 1,000 ML IVS PRN (05:21)
[2020-11-19] MEDS: PANTOPRAZOLE SODIUM TAB 40 MG PO SCH (05:33)
[2020-11-19] MEDS ORDERED: PANTOPRAZOLE SODIUM IV 40 MG VIAL IV SCH (06:30)
[2020-11-19] MEDS: DONEPEZIL HCL 5 MG TAB PO SCH (09:01)
[2020-11-19] MEDS: DEXAMETHASONE 4 MG TAB PO SCH (09:01)
[2020-11-19] MEDS: APIXABAN 5 MG TAB PO SCH ×2 (09:01→20:16)
[2020-11-19] MEDS: TAMSULOSIN 0.4 MG CAP PO SCH (09:01)
[2020-11-19] MEDS: SODIUM CHLORIDE 0.9% (FLUSH) 10 ML SYG IV SCH ×2 (09:02→20:16)
[2020-11-19] MEDS ORDERED: MAGNESIUM SULFATE PREMIX 2GM 2 GM in PREMIX BAG 1 BAG IVPB ONE (09:44)
[2020-11-19] MEDS ORDERED: MAGNESIUM SULFATE PREMIX 2GM 50 ML IVPB ONE (10:01)
--- NOTE | 2020-11-19 16:46 | PN ---
SUPERVISING PHYSICIAN: Jairo Kam MD DATE: 11/19/20 SUBJECTIVE: The patient looks much better today, seems to be back to his baseline mental status which is again baseline dementia but he does not show any other deficits. His calcium is being stabilized so far with no complications. He talked with his in regards to plan of care which at this point is to consult with Dr. Whitman in regard to the L2 compression fracture and then get another physical therapy evaluation, hopefully be able to discharge home. OBJECTIVE: VITAL SIGNS: Temperature 98, pulse 79, blood pressure 139/61, respirations 18, oxygen saturation 96% on room air. GENERAL: The patient looks to be resting comfortably in no distress. He is alert. CHEST Lung sounds are clear to auscultation. HEART: Regular rate and rhythm. ABDOMEN: Soft, nontender, positive bowel sounds. EXTREMITIES: He is moving all extremities ad carl without any obvious deficits. No reported paresthesias to the lower extremities. NEUROLOGIC: He is alert and oriented x3, again with no paresthesias reported. No change in bowel habits or other concerning focal deficits. SKIN: Warm, pink and dry. LABORATORY: CBC shows white count of 9,200, hemoglobin down to 8.0, hematocrit 23.7, platelet count 105,000. Differential does show a slight left shift. Chemistries show normal electrolytes except for calcium now down to 11.9, that's from admission of 14.4. Magnesium remains low at 1. Liver functions within normal limits. Creatinine down to 1.4. RADIOLOGY: No additional radiographic studies today. ASSESSMENT: 1. Same level fall with resulting acute L2 compression fracture with no obvious associated deficits. 2. Electrolyte imbalance to include severe hypocalcemia with hypomagnesemia associated with his multiple myeloma, showing slight improvement with fluids and treatment with no acute symptoms. 3. History of recent left hip fracture with gamma nail of left hip with significant deconditioning. 4. Chronic atrial fibrillation with a pacemaker on chronic anticoagulation with Eliquis. 5. IGA lambda multiple myeloma with deferring current therapy followed by oncology in [place] y Dr. Ruano to [facility], phone #[phone]. 6. Iron-deficiency anemia associated with multiple myeloma. Chronic lumbar disc disease with acute L2 fracture as noted in #1. 7. Osteoporosis. 8. History of osteonecrosis followed by oral surgeon, no recommended treatment at current time. 9. History of dementia on Aricept based on levels. PLAN: We will continue with current plan at this point with evaluation in the morning with physical therapy and I will talk to Dr. Whitman in regards to the L2 compression fracture and ultimate treatment and plan of care. Anticipate discharge to home within the next 24 to 48 hours. I did talk to his . His reports that normal activity at home with him moving from a chair to the bed from bed to recliner to a beside commode, he does go outside with assistance and he also has some physical therapy at home. I did discuss the plan of care with his and at this point hopefully we will be able to discharge the patient home once everything is in place. We will continue home health or if we need to, possibly increasing care in the form of sitters but will need to discuss this with discharge planning. I told her to expect a call from Shwetha in regards to this ultimate plan. Will saline-lock him in regards to treating the calcium and follow that and make sure it is stabilized and encouraged oral fluids. I think he is well hydrated at this point. All medications were resumed. Again, he has a DNR. I did talk to his again in regards to hospice, I do not think they are quite ready for this level of care but again, that is something they want to have with Dr. West and Dr. Best, his oncologist. Will recheck labs in the morning to include a BMP and H&H. He may also need a transfusion if he drops significantly but will continue to monitor that. He does remain on Decadron as per oncology recommendations, 40 mg for 4 days. He should have 2 additional days after today. Hopefully, we will be able to further assess, get a plan in place in regards to the L2 compression fracture and discharge tomorrow as I think is in the best interest of the patient and in talking to his , that he is discharged and back home as soon as possible because apparently, he went AWOL at [facility] and had to leave early due to the fact that he did not want to stay at the hospital any longer. Again, the patient remains stable and very cooperative, very pleasant, but I think it is in his best interest to get the patient home as soon as possible. Until we can do that, we will continue to monitor and treat as needed. #[id number] MTDD
[2020-11-19] MEDS ORDERED: APIXABAN 5 MG TAB PO ONE (19:50)
[2020-11-20] MEDS: PANTOPRAZOLE SODIUM TAB 40 MG PO SCH (07:10)
[2020-11-20] MEDS ORDERED: MAGNESIUM SULFATE PREMIX 2GM 2 GM in PREMIX BAG 1 BAG IVPB ONE (07:12)
[2020-11-20] MEDS ORDERED: TAMSULOSIN 0.4 MG CAP ONE (07:46)
[2020-11-20] MEDS ORDERED: DONEPEZIL HCL 5 MG TAB ONE (07:46)
[2020-11-20] MEDS ORDERED: APIXABAN 5 MG TAB PO ONE (07:46)
[2020-11-20] MEDS ORDERED: DEXAMETHASONE 4 MG TAB ONE ×2 (07:46→08:19)
[2020-11-20] MEDS ORDERED: MAGNESIUM SULFATE PREMIX 2GM 50 ML IVPB ONE (07:47)
[2020-11-20] MEDS: APIXABAN 5 MG TAB PO SCH (08:15)
[2020-11-20] MEDS: DONEPEZIL HCL 5 MG TAB PO SCH (08:15)
[2020-11-20] MEDS: DEXAMETHASONE 4 MG TAB PO SCH (08:21)
[2020-11-20] MEDS: SODIUM CHLORIDE 0.9% (FLUSH) 10 ML SYG IV SCH (08:24)
[2020-11-20] MEDS: TAMSULOSIN 0.4 MG CAP PO SCH (08:24)
[2020-11-20 12:57] VITALS: BP 130/71; TEMP 97.6; O2SAT 95
--- NOTE | 2020-11-21 10:22 | DS ---
SUPERVISING PHYSICIAN: Kapil Shannon MD ADMISSION DIAGNOSIS: 1. Same level fall with resulting acute L2 compression fracture with no obvious associated deficits. 2. Electrolyte imbalance to include severe hypocalcemia with hypomagnesemia associated with his multiple myeloma. 3. History of recent left hip fracture with gamma nail of left hip with significant deconditioning. 4. Chronic atrial fibrillation with a pacemaker on chronic anticoagulation with Eliquis. 5. IGA lambda multiple myeloma with deferring current therapy followed by oncology in [facility] by Dr. Doris Monroe to [facility], phone #[phone]. 6. Iron-deficiency anemia associated with multiple myeloma. 7. Chronic lumbar disc disease with acute L2 fracture as noted in #1. 8. Osteoporosis. 9. History of osteonecrosis followed by oral surgeon, no recommended treatment at current time. 10. History of dementia on Aricept based on levels. DISCHARGE DIAGNOSIS: 1. Same level fall with resulting acute L2 compression fracture with no obvious associated deficits. 2. Electrolyte imbalance to include severe hypocalcemia with hypomagnesemia associated with his multiple myeloma, showing slight improvement with fluids and treatment with no acute symptoms. 3. History of recent left hip fracture with gamma nail of left hip with significant deconditioning. 4. Chronic atrial fibrillation with a pacemaker on chronic anticoagulation with Eliquis. 5. IGA lambda multiple myeloma with deferring current therapy followed by oncology in [facility] by Dr. Doris Monroe to [facility], phone #[phone]. 6. Iron-deficiency anemia associated with multiple myeloma. 7. Chronic lumbar disc disease with acute L2 fracture as noted in #1. 8. Osteoporosis. 9. History of osteonecrosis followed by oral surgeon, no recommended treatment at current time. 10. History of dementia on Aricept based on levels. HISTORY OF PRESENT ILLNESS: Mr. Ospina is an 89 year-old male patient who has been in the Emergency Room earlier this morning, came in by his , actually had fallen while trying to get in the bed. He normally ambulates with a walker and apparently was ambulating when he fell and fell backward against the wall but did not hit his head. He was complaining of no pain in his hips, no pain in his pelvis. He does have a history of recent hip surgery in August after having a hip fracture. The majority of his pain in the Emergency Room was around the L2, L3 region. No reported neurological changes by the Emergency Room physician on initial exam, just generalized weakness. He has a history of multiple myeloma and osteoporosis. His mental state is at baseline according to his on initial presentation. CT of his lumbar spine demonstrated an acute L2 compression fracture. Pelvis CT with no acute findings and demonstrated an intramedullary nail with an intertrochanteric screw in the proximal left femur, re-demonstration of a fracture of the left subcapital femoral neck. His laboratory studies showed he was anemic with hemoglobin 9.7, hematocrit 28.7. Platelet count was within normal limits at 133,000. Differential didn't show to be with a left shift. His chemistries showed his creatinine was 1.65 which is elevated for him as his baseline creatinine prior to surgery was 1.0. Also of note was a critical value of calcium levels which was at 14.4. The patient was not demonstrating any signs of hypercalcemia but given his multiple myeloma with acute L2 fracture and his weakness, the patient is going to be admitted for further evaluation and treatment with physical therapy and further treatment of hypercalcemia. The patient was placed in observation in stable condition. LABORATORY: Hemoglobin at discharge was 7.5, hematocrit 22.6, white count 11.3. Differential did show a slight left shift. Chemistries showed initial calcium on admission was 14.4. Prior to discharge, it was 10.4. Magnesium was low at 1.2, but he got replacement and was improving. Creatinine was down to 1.35. Other electrolytes were within normal limits. Urinalysis was unremarkable. MICROBIOLOGY: Nasal swab for COVID was negative. RADIOLOGY: Lumbar spine CT per radiologic interpretation showed acute L2 compression fracture. Pelvis CT showed no acute fractures. Please see those reports for details. HOSPITAL COURSE: Mr. Ospina was admitted for status post fall with acute L2 compression fracture and elevated calcium levels related to dehydration and complicated by multiple myeloma. He had no signs of symptoms associated with hypercalcemia. He was given fluids with no complications and his calcium normalized nicely. I did talk with the oncologist that was director of litigation. She recommended he start a 4-day dose of Decadron that was started in the hospital. He was given 3 doses prior to discharge. I did talk to Dr. Whitman in regards to the L2 compression fracture. He felt the patient was stable because at this point just transfers from bed to chair and does minimal exertion. Physical therapy worked with him. The patient had not exhibited any signs or symptoms of compromise and demonstrated no pain and was no complaining of any pain. He seemed to be at baseline levels. He was notably anemic on day of discharge. I discussed this with Dr. West, his primary care physician, who wished to hold off on a transfusion, recheck in 2 days with home health and address at that point. Again, he was found to be clinically stable to continue with outpatient management. On discharge, his temperature was 97.6, pulse 81, blood pressure 130/71, [id number], saturation 95% on room air. PLAN: Mr. Ospina was discharged with home health through [facility]. He is to followup with Dr. West as scheduled. He is to have an H&H drawn in two days through [facility] with results sent to Dr. West. In regards to the calcium level, that will be followed as an outpatient. He will need followup of course in regards to the compression fracture. I also discuss possibility of going to hospice with his . She is open to that discussion, but they want to have a discussion further with their oncologist and form builder as well. Again, he was found to be stable. His was updated on his plan of care and was encouraged to return to the ER or call Dr. West's office should there be any concerning symptoms. CONDITION ON DISCHARGE: Stable and improved. DISPOSITION: The patient was discharged home with family and home health with physical therapy. #[id number] [facility]
== END 2020-11-20 14:40 | disposition home health service (06) ==
LOC: ER 00:32 → MS 03:05
PROVIDERS: ADMIT Nurse Practitioner Acute Care; ATTEND Nurse Practitioner Family
DX: S32.020A Wedge compression fracture of second lumbar vertebra, initial encounter for closed fracture (principal); E87.8 Other disorders of electrolyte and fluid balance, not elsewhere classified; E83.51 Hypocalcemia; E83.42 Hypomagnesemia; C90.00 Multiple myeloma not having achieved remission; I48.20 Chronic atrial fibrillation, unspecified; D50.9 Iron deficiency anemia, unspecified; M51.36 Other intervertebral disc degeneration, lumbar region; G89.29 Other chronic pain; M81.0 Age-related osteoporosis without current pathological fracture; M90.5 Osteonecrosis in diseases classified elsewhere; F03.90 Unspecified dementia, unspecified severity, without behavioral disturbance, psychotic disturbance, mood disturbance, and anxiety; Z20.828 Contact with and (suspected) exposure to other viral communicable diseases; Z66 Do not resuscitate; Z79.01 Long term (current) use of anticoagulants; Z79.899 Other long term (current) drug therapy; Z88.0 Allergy status to penicillin; Z95.0 Presence of cardiac pacemaker; Z98.890 Other specified postprocedural states; W01.0XXA Fall on same level from slipping, tripping and stumbling without subsequent striking against object, initial encounter; Y93.89 Activity, other specified; Y92.003 Bedroom of unspecified non-institutional (private) residence as the place of occurrence of the external cause
CPT/HCPCS: 96361 ×2; 96366; 96365; 96375; 96372; J8540 ×4; J1100; J1885; J2270; J7030 ×5; J3475 ×2; J7050; 80048 ×3; 80053 ×2; 36415 ×6; 81001; 85025 ×3; 83735 ×2; 84100; 83970; 71045; 72192; 72131; 94760 ×3; 97116; 97162; 99285; 93005; G0378; 87635

== ENCOUNTER → 2020-11-22 | Outpatient (CLI) | payer MEDICARE, BC | LOC: YCHH 10:31 | PROVIDERS: ATTEND Family Medicine | DX: D64.9 Anemia, unspecified (principal) ==

== ENCOUNTER → 2021-01-11 | Outpatient (CLI) | payer BC, MEDICARE | LOC: YCHH 10:54 | PROVIDERS: ATTEND Family Medicine | DX: N18.9 Chronic kidney disease, unspecified (principal); D64.9 Anemia, unspecified; E83.52 Hypercalcemia ==

== ENCOUNTER → 2021-01-22 | Outpatient (CLI) | payer MEDICARE | LOC: GMAE 12:11 | PROVIDERS: ATTEND Family Medicine | DX: D64.9 Anemia, unspecified (principal); N18.9 Chronic kidney disease, unspecified; E83.52 Hypercalcemia ==